=== PATIENT | male | born 1930 | race Caucasian/White ===

== ENCOUNTER 2016-10-29 10:03 | Inpatient (IN) | payer MEDICARE, OTHER ==
[2016-10-29 11:45] LABS: Hematocrit 33 % (42-52); Hemoglobin 10.4 g/dl (14.0-18.0); Mean Corpuscular HGB Conc 32 g/dl (31-36); Mean Corpuscular Hemoglobin 28 pg (27-31); Mean Corpuscular Volume 87 fL (80-94); Mean Platelet Volume 9 um3 (7.4-10.4); Red Blood Count 3.77 10^6/ul (4.0-5.4); Red Cell Distribution Width 15 % (10.5-15); White Blood Count 10.9 10^3/ul (3.5-10.8)
[2016-10-29 11:56] LABS: BUN/Creatinine Ratio 22.3 (8-20); Calcium 8.5 mg/dL (8.6-10.3); EGFR African American 54.4 (>60); EGFR Non-African American 42.3 (>60); Potassium 4.1 mmol/L (3.5-5.0); Total Bilirubin 0.5 mg/dL (0.2-1.0)
--- NOTE | 2016-10-29 12:01 | RAD ---
INDICATION: Shortness of breath. COMPARISON: Similar chest x-ray October 01, 2016 TECHNIQUE: Single AP portable view of the chest was obtained. FINDINGS: Image quality is compromised due to the relative inferiority of a portable chest x-ray. Stable postoperative findings include sternotomy wires and mediastinal surgical clips. There is mild to moderate cardiomegaly and faint calcification overlying the arch of the aorta. The lungs appear hyperaerated and this single AP view. There is patchy density obscuring the left lung base and left hemidiaphragm as well as density blunting the right costophrenic angle. The pulmonary vasculature is indistinct and mildly engorged. IMPRESSION: Left greater than right lung base density similar in appearance to the previous chest x-ray with features suggesting cardiogenic pulmonary edema.
[2016-10-29 12:02] LABS: Troponin I 0.07 ng/mL (<0.04)
[2016-10-29] MEDS ORDERED: Aspirin TAB* 325 MG PO ONE (12:20)
[2016-10-29] MEDS ORDERED: Nitroglycerin 2% OINT* 1 GM PAK TOPICAL ONE (12:20)
[2016-10-29] MEDS ORDERED: Furosemide IV* 10 MG/ML VIAL (40 MG) IV SLOW PU ONE (12:20)
--- NOTE | 2016-10-29 13:26 | HP ---
H&P (Free Text) History and Physical: PCP: Chance Velázquez MD Date/Time of Evaluation: 10/29/2016 1330 CC: SOB HPI: Mr Ryder is an 86YO male admitted to [facility] [place]04[place], discharged to [facility] for acute rehab, and discharged home yesterday around 1400. He did well yesterday evening, eating only an egg with "a little" salt. This AM he awoke noticing increased exertional SOB. He denies chest pain, N/V/D, F/C, palpitations, light-headedness, LE swelling, or sweats. He does have a wet cough and his reports he has coughed up some thick dark yellow sputum this AM. Work up reveals stable vitals, saO2 99% on RA (but was placed on NC oxygen in ED ). Labs show a stable normocytic anemia, WBCs of 10.9, improved renal function from his typical baseline, troponin of 0.07, total protein 6.0, & albumin 3.0. ECG is sinus w/ frequent PACs rate 78, no ischemia. CXR is consistent with CHF. PMedHx CAD/4vCABG COPD 3L NC oxygen dependent hemorrhagic CVA HTN HLD ANNE-MARIE depression chronic LBP w/ sciatica suicide attempt (cut L wrist, now w/ chronic numbness of L hand) BPH Allergies Sulfa Drugs Allergy (Unknown, Verified 11/29/14 23:58) Unknown Reaction Details Ambulatory Orders Acetaminophen [Acetaminophen Extra Stren] 1,000 mg PO QAM PRN 09/28/16 Aspirin EC Low Dose* [Ecotrin EC Low Dose*] 81 mg PO QAM 09/28/16 Atorvastatin* [Lipitor 10 MG*] 20 mg PO QAM 09/28/16 Bisoprolol TAB* [Zebeta TAB*] 5 mg PO QPM 09/28/16 Budesonide NEB* [Pulmicort Neb*] 1 mg INH BID 09/28/16 Bupropion XL* [Wellbutrin XL *] 150 mg PO QAM 09/28/16 Cholecalciferol TAB* [Vitamin D TAB*] 1,000 unit PO QAM 09/28/[address] CAP* [Cymbalta CAP*] 90 mg PO QAM 09/28/16 Multivitamins/Minerals TAB* [Theragran/minerals TAB*] 1 tab PO QAM 09/28/16 QUEtiapine XR TAB* [Seroquel Xr TAB*] 300 mg PO BEDTIME 09/28/16 Tamsulosin CAP* [Flomax CAP*] 0.4 mg PO QPM 09/28/16 Torsemide TAB* [Demadex 20 MG*] 40 mg PO QAM 09/28/16 guaiFENesin ER TAB [Mucinex*] 600 mg PO BID 09/28/16 Albuterol/Ipratropium NEB.CHINMAY* [Duoneb NEB.CHINMAY*] 1 neb INH Q4H PRN #0 neb.soln 10/03/16 Mometasone/Formoter 100/5 MDI* [Dulera 100/5 MDI*] 2 puff INH BID mdi 10/03/16 Albuterol/Ipratropium NEB.CHINMAY* [Duoneb NEB.CHINMAY*] 1 neb INH Q12H 10/29/16 Arformoterol (NF) [Brovana(NF)] 15 mcg INH BID 10/29/16 Arformoterol (NF) [Brovana(NF)] 15 mcg INH BID 10/29/16 Benzonatate CAP* [Tessalon CAP*] 200 mg PO TID 10/29/16 Sennosides-Docusate Sodium [Senna-S 8.6-50 mg] 1 tab PO BEDTIME 10/29/16 Tiotropium CAP.INH* [Spiriva CAP.INH*] 1 cap.inh INH DAILY 10/29/16 SocHx: former smoker w/ ~50PYHX, HX alcoholism sober ~25years, no recreational drugs; lives with his ; Jew; full code status FamHx: reviewed, non-contributory ROS: as above, otherwise reviewed and all were negative Constitutional: NAD, normally developed, well-nourished elderly white male vitals: Vital Signs Temp 36.9 C 10/29/16 10:45 Pulse 84 10/29/16 11:30 Resp 26 10/29/16 11:30 BP 119/79 10/29/16 12:00 Pulse Ox 93 10/29/16 11:30 Intake & Output 10/28/16 10/29/16 10/29/16 23:59 11:59 23:59 Intake Total 4 Balance 4 Weight 147 lb Intake: IV Fluids 4 HEENM: atraumatic; sclera/conjunctiva: non-icteric/clear; hearing: mildly decreased; oropharynx: soft palate erythema and cutaneous atrophy with dusky exudates consistent with oral candidiasis Neck: soft tissue: non-tender; thyroid: normal Pulmonary: scattered rhonchi B, good to fair aeration, no accessory muscle use CV: IR/IR, normal S1S2, no carotid bruit, no jugular venous distention, 1+ B DP/ PT, no edema Abdominal: soft, non-distended, non-tender, no rebound/guarding/rigidity, normoactive bowel sounds, no hepatosplenomegaly or masses, no costovertebral angle tenderness Musculoskeletal: general: grossly intact; gait: stable Integumental: normal appearance & texture for age Psychiatric orientation: AA&O to PPS affect: calm mood: pleasant eye contact: good content: unreliable responses: timely insight: fair Testing: Lab Results 10/29/16 10/29/16 10/29/16 Range/Units 10:10 10:10 10:10 WBC 10.9 H (3.5-10.8) 10^3/ul RBC 3.77 L (4.0-5.4) 10^6/ul Hgb 10.4 L (14.0-18.0) g/dl Hct 33 L (42-52) % MCV 87 (80-94) fL MCH 28 (27-31) pg MCHC 32 (31-36) g/dl RDW 15 (10.5-15) % Plt Count 228 (150-450) 10^3/ul MPV 9 (7.4-10.4) um3 Neut % (Auto) 79.3 (38-83) % Lymph % (Auto) 13.4 L (25-47) % [place] % (Auto) 6.9 (1-9) % Eos % (Auto) 0.2 (0-6) % Baso % (Auto) 0.2 (0-2) % Absolute Neuts (auto) 8.7 H (1.5-7.7) 10^3/ul Absolute Lymphs (auto) 1.5 (1.0-4.8) 10^3/ul Absolute Monos (auto) 0.8 (0-0.8) 10^3/ul Absolute Eos (auto) 0 (0-0.6) 10^3/ul Absolute Basos (auto) 0 (0-0.2) 10^3/ul Absolute Nucleated RBC 0 10^3/ul Nucleated RBC % 0 Sodium 141 (133-145) mmol/L Potassium 4.1 (3.5-5.0) mmol/L Chloride 101 (101-111) mmol/L Carbon Dioxide 31 (22-32) mmol/L Anion Gap 9 (2-11) mmol/L BUN 35 H (6-24) mg/dL Creatinine 1.57 H (0.67-1.17) mg/dL Est GFR ( Amer) 54.4 (>60) Est GFR (Non-Af Amer) 42.3 (>60) BUN/Creatinine Ratio 22.3 H (8-20) Glucose 101 H (70-100) mg/dL Lactic Acid (0.5-2.0) mmol/L Calcium 8.5 L (8.6-10.3) mg/dL Total Bilirubin 0.50 (0.2-1.0) mg/dL AST 13 (13-39) U/L ALT 12 (7-52) U/L Alkaline Phosphatase 50 (34-104) U/L Troponin I 0.07 H* (<0.04) ng/mL B-Natriuretic Peptide 282 H ( - 100) pg/mL Total Protein 6.0 L (6.4-8.9) g/dL Albumin 3.0 L (3.2-5.2) g/dL Globulin 3.0 (2-4) g/dL Albumin/Globulin Ratio 1.0 (1-3) 10/29/16 Range/Units 12:22 WBC (3.5-10.8) 10^3/ul RBC (4.0-5.4) 10^6/ul Hgb (14.0-18.0) g/dl Hct (42-52) % MCV (80-94) fL MCH (27-31) pg MCHC (31-36) g/dl RDW (10.5-15) % Plt Count (150-450) 10^3/ul MPV (7.4-10.4) um3 Neut % (Auto) (38-83) % Lymph % (Auto) (25-47) % [place] % (Auto) (1-9) % Eos % (Auto) (0-6) % Baso % (Auto) (0-2) % Absolute Neuts (auto) (1.5-7.7) 10^3/ul Absolute Lymphs (auto) (1.0-4.8) 10^3/ul Absolute Monos (auto) (0-0.8) 10^3/ul Absolute Eos (auto) (0-0.6) 10^3/ul Absolute Basos (auto) (0-0.2) 10^3/ul Absolute Nucleated RBC 10^3/ul Nucleated RBC % Sodium (133-145) mmol/L Potassium (3.5-5.0) mmol/L Chloride (101-111) mmol/L Carbon Dioxide (22-32) mmol/L Anion Gap (2-11) mmol/L BUN (6-24) mg/dL Creatinine (0.67-1.17) mg/dL Est GFR ( Amer) (>60) Est GFR (Non-Af Amer) (>60) BUN/Creatinine Ratio (8-20) Glucose (70-100) mg/dL Lactic Acid 1.3 (0.5-2.0) mmol/L Calcium (8.6-10.3) mg/dL Total Bilirubin (0.2-1.0) mg/dL AST (13-39) U/L ALT (7-52) U/L Alkaline Phosphatase (34-104) U/L Troponin I (<0.04) ng/mL B-Natriuretic Peptide ( - 100) pg/mL Total Protein (6.4-8.9) g/dL Albumin (3.2-5.2) g/dL Globulin (2-4) g/dL Albumin/Globulin Ratio (1-3) ECG, personally reviewed: sinus w/ frequent PACs rate 78, no ischemia CXR, personally reviewed: IMPRESSION: Left greater than right lung base density similar in appearance to the previous chest x-ray with features suggesting cardiogenic pulmonary edema. ECHO 09/28/2016: Conclusions: The study is technically limited due to the patient's history of COPD. Septal wall hypertrophy is observed.c/w a sigmoid septum. No significant obstruction. The estimated ejection fraction is 40-45%. Post surgical hypokinesis of the interventricular septum is observed consistent with coronary artery bypass. The left atrium is slightly dilated. The septum has abnormal paradoxical motion consistent with post-operative pressure. The aortic valve leaflets are mildly thickened. There is mild aortic regurgitation. There is trace to mild tricuspid regurgitation. There is mild dilatation of the ascending aorta. There is moderate dilatation of the aortic root. Compared to 2008, the EF appears decreased from 50% then to 40-45% now. Impression: 86M presenting <24h after discharge from acute rehab at [facility] with acute on chronic systolic HF likely 2nd sodium indiscretion & possibly a component of COPD exacerbation DIAGNOSIS & PLAN Primary acute systolic HF : nutrition consult to review low sodium diet : furosemide diuresis : continue PO torsemide : strict I&Os : daily weights : supplemental oxygen : supportive care COPD exacerbation : albuterol nebs : mometasone/formoterol : tiotropium : methylprednisolone IV : incentive spirometry : guiafenesin : PO azithromycin : supplemental oxygen elevated troponin : suspect demand ischemia : telemetry : trend : aspirin 324mg given in ED, continue low dose oral candidiasis : 2nd inhaled steroids : nystatin swish & swallow Secondary CAD/4vCABG : continue low dose aspirin HTN : continue bisoprolol HLD : continue atorvastatin ANNE-MARIE depression : continue bupropion XL & quetiapine chronic LBP w/ sciatica : continue duloxetine BPH : continue tamsulosin Admission Rational: observation for diuresis and monitoring DVTp: SCDs & heparin SQ Code Status: full HCP:
[2016-10-29] MEDS ORDERED: Acetaminophen TAB* 325 MG PO PRN (15:04)
[2016-10-29] MEDS ORDERED: Melatonin (NF) 3 MG TAB PO PRN (15:04)
[2016-10-29] MEDS ORDERED: Ondansetron INJ* 2 MG/ML VIAL IV PRN (15:04)
[2016-10-29] MEDS ORDERED: traMADol TAB* 50 MG PO PRN (15:04)
[2016-10-29] MEDS ORDERED: Albuterol 2.5 MG/3 ML NEB.SOL* (0.083%) INH PRN (15:04)
[2016-10-29] MEDS: Nystatin SUSPENSION* 100000 UNITS/ML 5 ML UDC SWISH SWAL SCH ×2 (15:59→20:48)
[2016-10-29] MEDS ORDERED: Furosemide IV* 10 MG/ML 10 ML VIAL (100 MG) IV ONE (16:00)
[2016-10-29] MEDS ORDERED: Azithromycin TAB* 250 MG PO SCH (16:00)
[2016-10-29] MEDS: Albuterol 2.5 MG/3 ML NEB.SOL* (0.083%) INH SCH (19:59)
[2016-10-29] MEDS: Mometasone/Formoter 200/5 MDI INH SCH (20:15)
[2016-10-29] MEDS: Bisoprolol TAB* 5 MG PO SCH (20:39)
[2016-10-29] MEDS: Tamsulosin CAP* 0.4 MG PO SCH (20:40)
[2016-10-29] MEDS: Docusate CAP* 100 MG PO SCH (20:41)
[2016-10-29] MEDS: Benzonatate CAP* 100 MG PO SCH (20:41)
[2016-10-29] MEDS: guaiFENesin ER TAB 600 MG PO SCH (20:42)
[2016-10-29] MEDS: DOXYcycline CAP(*) 100 MG PO SCH (20:42)
[2016-10-29] MEDS: QUEtiapine XR TAB* 300 MG PO SCH (20:43)
[2016-10-29] MEDS: Senna TAB PO SCH (20:43)
[2016-10-29] MEDS ORDERED: Mometasone/Formoter 100/5 MDI INH SCH (21:00)
[2016-10-30] MEDS: Albuterol 2.5 MG/3 ML NEB.SOL* (0.083%) INH SCH ×4 (01:00→20:08)
[2016-10-30] MEDS: Heparin VIAL(*) 5000 UNITS/ML VIAL (FIVE THOUSAND) SUBCUT SCH ×3 (05:49→21:33)
[2016-10-30] MEDS ORDERED: Omeprazole CAP* 20 MG PO SCH (06:00)
[2016-10-30 06:42] LABS: Hematocrit 32 % (42-52); Hemoglobin 10.5 g/dl (14.0-18.0); Mean Corpuscular HGB Conc 33 g/dl (31-36); Mean Corpuscular Hemoglobin 28 pg (27-31); Mean Corpuscular Volume 86 fL (80-94); Mean Platelet Volume 8 um3 (7.4-10.4); Red Blood Count 3.75 10^6/ul (4.0-5.4); Red Cell Distribution Width 16 % (10.5-15); White Blood Count 9.7 10^3/ul (3.5-10.8)
[2016-10-30 06:58] LABS: BUN/Creatinine Ratio 22.8 (8-20); Calcium 8.2 mg/dL (8.6-10.3); EGFR African American 69.5 (>60); Potassium 3.6 mmol/L (3.5-5.0)
--- NOTE | 2016-10-30 08:02 | ED ---
Isela Field SooYoung, scribed for Larry Webb MD on 10/29/16 at 1120 . Shortness of Breath - HPI Summary HPI Summary: A 86 y/o M LORAINE presents to ED with c/o SOB onset this AM. Pt is on 2L home O2, his said she turned it up to 3L but that didn't help him. Associated sx: Productive cough. Negative: CP, fever, chills, diaphoresis, n/v/d. Pert PMHx: COPD. Pt was discharged from [facility] last night recovering from SOB. - History of Current Complaint Chief Complaint: EDShortnessOfBreath Time Seen by Provider: 10/29/16 11:09 Hx Obtained From: Patient, Family/Neurodiagnostic Tech - Onset/Duration: Still Present Current Severity: Moderate Associated Signs & Symptoms: Cough (Productive) - Allergy/Home Medications Allergies/Adverse Reactions: Allergies Allergy/AdvReac Type Severity Reaction Status Date / Time Sulfa Drugs Allergy Unknown Unknown Verified 11/29/14 23:58 Reaction Details Home Medications: Home Medications Arformoterol (NF) [Brovana(NF)] 15 mcg INH BID 10/29/16 [History Confirmed 10/29] Benzonatate CAP* [Tessalon CAP*] 200 mg PO TID 10/29/16 [History Confirmed 10/29] Sennosides-Docusate Sodium [Senna-S 8.6-50 mg] 1 tab PO BEDTIME 10/29/16 [ History Confirmed 10/29/16] PMH/Surg Hx/FS Hx/Imm Hx Previously Healthy: No Cardiovascular History: Reports: Hx Hypertension, Other Cardiovascular Problems/ Disorders - 4 bypasses Respiratory History: Reports: Hx Chronic Bronchitis, Hx Chronic Obstructive Pulmonary Disease (COPD) - has portable oxygen set at 3 liters/nasal cannula, Hx Pneumonia, Hx Sleep Apnea Musculoskeletal History: Reports: Hx Arthritis, Hx Back Problems, Hx Gout Sensory History: Reports: Hx Contacts or Glasses, Hx Hearing Aid Opthamlomology History: Reports: Hx Contacts or Glasses Neurological History: Reports: Other Neuro Impairments/Disorders - patient and note minor stroke Psychiatric History: Reports: Hx Anxiety, Hx Depression, Hx Suicide Attempt - Surgical History Surgery Procedure, Year, and Place: Had cyst removed from back; 4 cardiac bypasses; Deviated septum repair; Cataract Surgery Infectious Disease History: No Infectious Disease History: Denies: Traveled Outside the [place] in Last 30 Days - Family History Known Family History: Negative: Diabetes Family History: reviewed and noncontributory - Social History Occupation: Retired Lives: With Family Alcohol Use: None Substance Use Type: Reports: None Smoking Status (MU): Former Smoker Review of Systems Negative: Fever, Chills Negative: Erythema Negative: Sore Throat Negative: Chest Pain Positive: Shortness Of Breath, Cough Negative: Abdominal Pain, Vomiting, Nausea Negative: dysuria, hematuria Negative: Myalgia, Edema Negative: Rash Neurological: Other - neg: dizziness All Other Systems Reviewed And Are Negative: Yes Physical Exam - Summary Physical Exam Summary: Constitutional: Well-developed, Well-nourished, Alert. Negative Distressed Skin: Warm, Dry HENT: Normocephalic; Atraumatic Eyes: Conjunctiva normal Neck: Musculoskeletal ROM normal neck. Negative JVD, Negative Stridor, Negative Tracheal deviation Cardio: Rhythm regular, rate normal, Heart sounds normal; Intact distal pulses; The pedal pulses are 2+ and symmetric. Radial pulses are 2+ and symmetric. Negative Murmur Pulmonary/Chest wall: Effort normal. Negative Respiratory distress, BILATERAL RHONCHI Abd: Soft, Negative Tenderness, Negative Distension, Negative Guarding, Negative Rebound Musculoskeletal: Negative Edema Lymph: Negative Cervical adenopathy Neuro: Alert, Oriented x3 Psych: Mood and affect Normal Triage Information Reviewed: Yes Vital Signs On Initial Exam: Initial Vitals Temp Pulse Resp BP Pulse Ox 98.5 F 95 22 120/69 100 10/29/16 10:18 10/29/16 10:18 10/29/16 10:18 10/29/16 10:18 10/29/16 10:18 Vital Signs Reviewed: Yes - Jackson Coma Scale Coma Scale Total: 15 Diagnostics - Vital Signs Vital Signs Temp Pulse Resp BP Pulse Ox 10/29/16 10:45 98.5 F 69 20 117/58 95 10/29/16 10:18 98.5 F 95 22 120/69 100 - Laboratory Result Diagrams: 10/29/16 10:10 10/29/16 10:10 Lab Statement: Any lab studies that have been ordered have been reviewed, and results considered in the medical decision making process. - Radiology CXR Xray Interpretation: Positive (See Comments) - IMPRESSION: Left greater than right lung base density similar in appearance to the previous chest x-ray with features suggesting cardiogenic pulmonary edema. Radiology Interpretation Completed By: Radiologist - Additional Comments Diagnostic Additional Comments: Real-time telemetry in room: SR with 1st degree AV block Course/Dx - Diagnoses Provider Diagnoses: CHF exacerbation - Physician Notifications Discussed Care of Patient With: Dr. Andrade hospitalist Time Discussed With Above Provider: 12:37 Instructed by Provider To: Admit As Inpatient Discharge - Discharge Plan Condition: Stable Disposition: ADMITTED TO [facility] Referrals: Maxx Velázquez MD [Primary Care Provider] - The documentation as recorded by the Isela andino SooYoung accurately reflects the service I personally performed and the decisions made by me, Larry Webb MD.
[2016-10-30] MEDS: Tiotropium CAP.INH* CAP.INH/18 MCG (USE ORDER SET !) INH SCH (08:33)
[2016-10-30] MEDS: Mometasone/Formoter 200/5 MDI INH SCH ×2 (08:37→20:11)
[2016-10-30] MEDS ORDERED: Spiriva Inhaler DEVICE* 1 EACH DEVICE INH ONE (09:00)
[2016-10-30] MEDS ORDERED: methylPREDNISolone SOD 40 MG* 1 ML VIAL IV SCH (09:00)
[2016-10-30] MEDS ORDERED: DULoxetine DR CAP* 30 MG CAP.DR PO SCH (09:00)
[2016-10-30] MEDS: Aspirin EC Low Dose* 81 MG TAB.EC PO SCH (10:35)
[2016-10-30] MEDS: Nystatin SUSPENSION* 100000 UNITS/ML 5 ML UDC SWISH SWAL SCH ×3 (10:35→20:05)
[2016-10-30] MEDS: Docusate CAP* 100 MG PO SCH (10:35)
[2016-10-30] MEDS: Benzonatate CAP* 100 MG PO SCH ×3 (10:35→20:05)
[2016-10-30] MEDS: Atorvastatin* 20 MG TAB PO SCH (10:35)
[2016-10-30] MEDS: guaiFENesin ER TAB 600 MG PO SCH ×2 (10:36→20:05)
[2016-10-30] MEDS: BuPROPion XL* 150 MG TAB.XL PO SCH (10:36)
[2016-10-30] MEDS: Torsemide TAB* 20 MG PO SCH (10:36)
[2016-10-30] MEDS: DOXYcycline CAP(*) 100 MG PO SCH ×2 (10:36→20:05)
[2016-10-30] MEDS: Furosemide IV* 10 MG/ML 10 ML VIAL (100 MG) IV SCH (10:37)
--- NOTE | 2016-10-30 15:18 | PN ---
Subjective Date of Service: 10/30/16 Interval History: Somewhat less SOB today but very weak. Little cough. Objective Active Medications: Acetaminophen (Tylenol Tab*) 650 mg PO Q6H PRN PRN Reason: FEVER/PAIN Albuterol (Ventolin 2.5 Mg/3 Ml Neb.Tiffany*) 2.5 mg INH Q2H PRN PRN Reason: SOB/WHEEZING Albuterol (Ventolin 2.5 Mg/3 Ml Neb.Tiffany*) 2.5 mg INH RT.[id number] AWAKE [facility] Last Admin: 10/30/16 14:34 Dose: 2.5 mg Aspirin (Aspirin Ec Low Dose*) [facility] [place] Last Admin: 10/30/16 10:35 Dose: 81 mg Atorvastatin Calcium (Lipitor*) 20 mg PO [facility] Last Admin: 10/30/16 10:35 Dose: 20 mg Benzonatate (Tessalon Cap*) 200 mg PO TID [facility] Last Admin: 10/30/16 10:35 Dose: 200 mg Bisoprolol Fumarate (Zebeta Tab*) 5 mg PO QPM [facility] Last Admin: 10/29/16 20:39 Dose: 5 mg Bupropion HCl (Wellbutrin Xl *) 150 mg PO [facility] PRN Reason: Protocol Last Admin: 10/30/16 10:36 Dose: 150 mg Docusate Sodium (Colace Cap*) 200 mg PO BID [facility] Last Admin: 10/30/16 10:35 Dose: 200 mg Doxycycline Hyclate (Vibramycin Cap(*)) 100 mg PO BID [facility] Last Admin: 10/30/16 10:36 Dose: 100 mg Duloxetine HCl (Cymbalta Cap*) 90 mg PO [facility] Last Admin: 10/30/16 10:36 Dose: 90 mg Furosemide (Lasix Iv*) 40 mg IV [facility] Last Admin: 10/30/16 10:37 Dose: 40 mg Guaifenesin (Mucinex*) 1,200 mg PO BID [facility] Last Admin: 10/30/16 10:36 Dose: 1,200 mg Heparin Sodium (Porcine) (Heparin Vial(*)) 5,000 units SUBCUT Q8HR [facility] Last Admin: 10/30/16 05:49 Dose: 5,000 units Mometasone Furoate/Formoterol Fumar (Dulera 200/5 Mdi*) 2 puff INH BID [facility] Last Admin: 10/30/16 08:37 Dose: 2 puff Nystatin (Nystatin Suspension*) 200,000 units SWISH SWAL TID [facility] Last Admin: 10/30/16 10:35 Dose: 200,000 units Ondansetron HCl (Zofran Inj*) 4 mg IV Q6H PRN PRN Reason: NAUSEA Quetiapine Fumarate (Seroquel Xr Tab*) 300 mg PO BEDTIME [facility] Last Admin: 10/29/16 20:43 Dose: 300 mg Senna (Senokot Tab*) 1 tab PO BEDTIME [facility] Last Admin: 10/29/16 20:43 Dose: 1 tab Tamsulosin HCl (Flomax Cap*) 0.4 mg PO QPM [facility] Last Admin: 10/29/16 20:40 Dose: 0.4 mg Tiotropium [place] (Spiriva Cap.Inh*) 1 cap INH DAILY [facility] Last Admin: 10/30/16 08:33 Dose: 1 cap Torsemide (Demadex*) 40 mg PO QAM [facility] Last Admin: 10/30/16 10:36 Dose: 40 mg Tramadol HCl (Ultram*) 50 mg PO Q6H PRN PRN Reason: PAIN Vital Signs 10/29/16 10/29/16 10/29/16 18:03 19:28 20:00 Temperature 97.9 F Pulse Rate 84 89 Respiratory 17 24 18 Rate Blood Pressure 102/54 134/84 (mmHg) O2 Sat by Pulse 96 Oximetry 10/29/16 10/29/16 10/30/16 20:01 21:02 00:24 Temperature 98.7 F Pulse Rate 78 65 Respiratory 18 18 16 Rate Blood Pressure 110/59 (mmHg) O2 Sat by Pulse 95 95 Oximetry 10/30/16 10/30/16 10/30/16 04:44 07:52 08:00 Temperature 98.4 F 98.2 F Pulse Rate 32 75 Respiratory 16 20 18 Rate Blood Pressure 122/60 130/67 (mmHg) O2 Sat by Pulse 97 96 Oximetry 10/30/16 10/30/16 10/30/16 08:25 11:21 14:35 Temperature 98.2 F Pulse Rate 86 77 88 Respiratory 18 24 16 Rate Blood Pressure 118/62 (mmHg) O2 Sat by Pulse 98 97 99 Oximetry Oxygen Devices in Use Now: Nasal Cannula Appearance: Alert, partly up in bed. In fair spirits. Looks comfortable. No cough during my visit. Eyes: No Scleral Icterus Ears/Nose/Mouth/Throat: Clear Oropharnyx, Mucous Membranes Moist Neck: NL Appearance and Movements; NL JVP, No Thyroid Enlargement, Masses Respiratory: Symmetrical Chest Expansion and Respiratory Effort, Clear to Auscultation, Clear to Percussion Cardiovascular: NL Sounds; No Murmurs; No JVD, No Edema, - - irreg Skin: No Nodules or Sclerosis, - - many seborrheic keratoses on trunk and extremities. Neurological: Alert and Oriented x 3, NL Sensation Result Diagrams: 10/30/16 06:16 10/30/16 06:16 Assess/Plan/Problems-Billing Assessment: - Patient Problems (1) COPD (chronic obstructive pulmonary disease) Current Visit: No Status: Acute Code(s): J44.9 - CHRONIC OBSTRUCTIVE PULMONARY DISEASE, UNSPECIFIED SNOMED Code(s): 84805507 Comment: Taper prednisone. Continue tiotropium, albuterol neb. (2) Congestive heart failure Current Visit: Yes Status: Acute Code(s): I50.9 - HEART FAILURE, UNSPECIFIED SNOMED Code(s): 20808891 Comment: Acute on chronic systolic CHF. Change back to oral torsemide . I suspect there was some dietary excess of sodium at home. Daily weights requested. (3) HTN (hypertension) Current Visit: No Status: Acute Code(s): I10 - ESSENTIAL (PRIMARY) HYPERTENSION SNOMED Code(s): 76149956 Comment: Continue bisoprolol.
[2016-10-30] MEDS: Tamsulosin CAP* 0.4 MG PO SCH (18:33)
[2016-10-30] MEDS: Bisoprolol TAB* 5 MG PO SCH (18:33)
[2016-10-30] MEDS: Senna TAB PO SCH (20:06)
[2016-10-30] MEDS: QUEtiapine XR TAB* 300 MG PO SCH (21:33)
[2016-10-30] MEDS: Melatonin (NF) 3 MG TAB PO PRN (21:33)
[2016-10-31] MEDS: Albuterol 2.5 MG/3 ML NEB.SOL* (0.083%) INH SCH ×4 (01:40→21:29)
[2016-10-31] MEDS: Heparin VIAL(*) 5000 UNITS/ML VIAL (FIVE THOUSAND) SUBCUT SCH ×3 (05:14→21:58)
[2016-10-31] MEDS: Tiotropium CAP.INH* CAP.INH/18 MCG (USE ORDER SET !) INH SCH (08:19)
[2016-10-31] MEDS: Mometasone/Formoter 200/5 MDI INH SCH ×2 (08:19→21:29)
[2016-10-31] MEDS ORDERED: predniSONE TAB* 20 MG PO SCH (09:00)
[2016-10-31] MEDS: Furosemide IV* 10 MG/ML 10 ML VIAL (100 MG) IV SCH (11:01)
[2016-10-31] MEDS: Nystatin SUSPENSION* 100000 UNITS/ML 5 ML UDC SWISH SWAL SCH ×3 (11:01→21:05)
[2016-10-31] MEDS: DULoxetine DR CAP* 30 MG CAP.DR PO SCH (11:02)
[2016-10-31] MEDS: Torsemide TAB* 20 MG PO SCH (11:02)
[2016-10-31] MEDS: guaiFENesin ER TAB 600 MG PO SCH ×2 (11:02→21:03)
[2016-10-31] MEDS: Atorvastatin* 20 MG TAB PO SCH (11:03)
[2016-10-31] MEDS: DOXYcycline CAP(*) 100 MG PO SCH ×2 (11:03→21:02)
[2016-10-31] MEDS: BuPROPion XL* 150 MG TAB.XL PO SCH (11:03)
[2016-10-31] MEDS: Benzonatate CAP* 100 MG PO SCH ×3 (11:03→21:02)
[2016-10-31] MEDS: Aspirin EC Low Dose* 81 MG TAB.EC PO SCH (11:03)
--- NOTE | 2016-10-31 15:37 | PN ---
Subjective Date of Service: 10/31/16 Interval History: No new c/o. Still some cough. Slowly getting better but still weak. Objective Active Medications: Acetaminophen (Tylenol Tab*) 650 mg PO Q6H PRN PRN Reason: FEVER/PAIN Last Admin: 10/30/16 18:52 Dose: 650 mg Albuterol (Ventolin 2.5 Mg/3 Ml Neb.Tiffany*) 2.5 mg INH Q2H PRN PRN Reason: SOB/WHEEZING Albuterol (Ventolin 2.5 Mg/3 Ml Neb.Tiffany*) 2.5 mg INH [id number] AWAKE [facility] Last Admin: 10/31/16 13:22 Dose: 2.5 mg Aspirin (Aspirin Ec Low Dose*) [facility] [place] Last Admin: 10/31/16 11:03 Dose: 81 mg Atorvastatin Calcium (Lipitor*) [facility] [place] Last Admin: 10/31/16 11:03 Dose: 20 mg Benzonatate (Tessalon Cap*) 100 mg PO TID [facility] Last Admin: 10/31/16 14:27 Dose: 100 mg Bisoprolol Fumarate (Zebeta Tab*) 5 mg PO QPM [facility] Last Admin: 10/30/16 18:33 Dose: 5 mg Bupropion HCl (Wellbutrin Xl *) [facility] [place] [facility]N Reason: Protocol Last Admin: 10/31/16 11:03 Dose: 150 mg Doxycycline Hyclate (Vibramycin Cap(*)) 100 mg PO BID [facility] Last Admin: 10/31/16 11:03 Dose: 100 mg Duloxetine HCl (Cymbalta Cap*) 60 mg PO [facility] Last Admin: 10/31/16 11:02 Dose: 60 mg Furosemide (Lasix Iv*) 40 mg IV [facility] Last Admin: 10/31/16 11:01 Dose: 40 mg Guaifenesin (Mucinex*) 1,200 mg PO BID [facility] Last Admin: 10/31/16 11:02 Dose: 1,200 mg Heparin Sodium (Porcine) (Heparin Vial(*)) 5,000 units SUBCUT Q8HR [facility] Last Admin: 10/31/16 14:28 Dose: 5,000 units Melatonin (Melatonin (Nf)) 3 mg PO BEDTIME PRN PRN Reason: SLEEP Last Admin: 01/01/17 21:33 Dose: 3 mg Mometasone Furoate/Formoterol Fumar (Dulera 200/5 Mdi*) 2 puff INH BID [facility] Last Admin: 10/31/16 08:19 Dose: 2 puff Nystatin (Nystatin Suspension*) 200,000 units SWISH SWAL TID [facility] Last Admin: 10/31/16 14:30 Dose: 200,000 units Ondansetron HCl (Zofran Inj*) 4 mg IV Q6H PRN PRN Reason: NAUSEA Prednisone (Deltasone Tab*) 60 mg PO ONCE [facility] Prednisone (Deltasone Tab*) 50 mg PO DAILY [facility] Quetiapine Fumarate (Seroquel Xr Tab*) 300 mg PO BEDTIME [facility] Last Admin: 10/30/16 21:33 Dose: 300 mg Senna (Senokot Tab*) 1 tab PO BEDTIME [facility] Last Admin: 10/30/16 20:06 Dose: 1 tab Tamsulosin HCl (Flomax Cap*) 0.4 mg PO QPM [facility] Last Admin: 10/30/16 18:33 Dose: 0.4 mg Tiotropium [place] (Spiriva Cap.Inh*) 1 cap INH DAILY [facility] Last Admin: 10/31/16 08:19 Dose: 1 cap Torsemide (Demadex*) 40 mg PO QAM [facility] Last Admin: 10/31/16 11:02 Dose: 40 mg Tramadol HCl (Ultram*) 50 mg PO Q6H PRN PRN Reason: PAIN Vital Signs 10/30/16 10/30/16 10/30/16 15:37 17:37 20:00 Temperature 97.9 F Pulse Rate 93 Respiratory 18 18 Rate Blood Pressure 119/63 (mmHg) O2 Sat by Pulse 93 96 Oximetry 10/30/16 10/31/16 10/31/16 20:11 00:59 01:47 Temperature 97.6 F Pulse Rate 74 45 Respiratory 20 16 Rate Blood Pressure 105/56 (mmHg) O2 Sat by Pulse 94 98 94 Oximetry 10/31/16 10/31/16 10/31/16 05:10 07:48 08:21 Temperature 97.8 F 98.0 F Pulse Rate 69 46 84 Respiratory 16 22 16 Rate Blood Pressure 107/51 116/58 (mmHg) O2 Sat by Pulse 95 95 96 Oximetry 10/31/16 10/31/16 10:59 13:24 Temperature Pulse Rate 72 70 Respiratory 20 16 Rate Blood Pressure (mmHg) O2 Sat by Pulse 100 Oximetry Oxygen Devices in Use Now: Nasal Cannula Appearance: Alert, supine in bed. In good spirits. Looks comfortable. Eyes: No Scleral Icterus Neck: NL Appearance and Movements; NL JVP, No Thyroid Enlargement, Masses Respiratory: Symmetrical Chest Expansion and Respiratory Effort, Clear to Percussion - mild scattered rhonchi Cardiovascular: NL Sounds; No Murmurs; No JVD, RRR, No Edema, - Extremities: No Edema, No Clubbing, Cyanosis, - Skin: No Rash or Ulcers, No Nodules or Sclerosis, - Neurological: Alert and Oriented x 3, NL Sensation, - - passive. No tremor. Result Diagrams: 10/30/16 06:16 10/30/16 06:16 Assess/Plan/Problems-Billing Assessment: - Patient Problems (1) COPD (chronic obstructive pulmonary disease) Current Visit: No Status: Acute Code(s): J44.9 - CHRONIC OBSTRUCTIVE PULMONARY DISEASE, UNSPECIFIED SNOMED Code(s): 17970832 Comment: Continue to taper prednisone. Continue tiotropium, albuterol neb. (2) Congestive heart failure Current Visit: Yes Status: Acute Code(s): I50.9 - HEART FAILURE, UNSPECIFIED SNOMED Code(s): 00719113 Comment: Acute on chronic systolic CHF. Oral torsemide re-started 10/31/16. I suspect there was some dietary excess of sodium at home. Daily weights requested. BMP 11/01/16. (3) HTN (hypertension) Current Visit: No Status: Acute Code(s): I10 - ESSENTIAL (PRIMARY) HYPERTENSION SNOMED Code(s): 04257601 Comment: Continue bisoprolol.
[2016-10-31] MEDS: Tamsulosin CAP* 0.4 MG PO SCH (17:50)
[2016-10-31] MEDS: Bisoprolol TAB* 5 MG PO SCH (17:50)
[2016-10-31] MEDS: QUEtiapine XR TAB* 300 MG PO SCH (21:04)
[2016-10-31] MEDS: Senna TAB PO SCH (21:04)
[2016-11-01] MEDS: Albuterol 2.5 MG/3 ML NEB.SOL* (0.083%) INH SCH ×4 (01:00→20:23)
[2016-11-01 05:01] LABS: BUN/Creatinine Ratio 22.9 (8-20); Calcium 7.8 mg/dL (8.6-10.3); EGFR African American 54.4 (>60); EGFR Non-African American 42.3 (>60); Potassium 3.7 mmol/L (3.5-5.0)
[2016-11-01] MEDS: Heparin VIAL(*) 5000 UNITS/ML VIAL (FIVE THOUSAND) SUBCUT SCH ×3 (05:22→20:48)
[2016-11-01] MEDS: Tiotropium CAP.INH* CAP.INH/18 MCG (USE ORDER SET !) INH SCH (07:57)
[2016-11-01] MEDS: Mometasone/Formoter 200/5 MDI INH SCH ×2 (07:58→20:24)
[2016-11-01] MEDS: DULoxetine DR CAP* 30 MG CAP.DR PO SCH (08:51)
[2016-11-01] MEDS: DOXYcycline CAP(*) 100 MG PO SCH ×2 (08:51→20:49)
[2016-11-01] MEDS: Atorvastatin* 20 MG TAB PO SCH (08:52)
[2016-11-01] MEDS: Torsemide TAB* 20 MG PO SCH (08:52)
[2016-11-01] MEDS: Aspirin EC Low Dose* 81 MG TAB.EC PO SCH (08:52)
[2016-11-01] MEDS: Benzonatate CAP* 100 MG PO SCH ×3 (08:52→20:49)
[2016-11-01] MEDS: guaiFENesin ER TAB 600 MG PO SCH ×2 (08:53→20:49)
[2016-11-01] MEDS: BuPROPion XL* 150 MG TAB.XL PO SCH (08:53)
[2016-11-01] MEDS: predniSONE TAB* 50 MG PO SCH (08:53)
[2016-11-01] MEDS: Nystatin SUSPENSION* 100000 UNITS/ML 5 ML UDC SWISH SWAL SCH ×2 (08:56→14:17)
--- NOTE | 2016-11-01 14:16 | PN ---
Subjective Date of Service: 11/01/16 Interval History: Pt c/o he doesn't like the mycostatin swish and spit. No other c/o. Objective Active Medications: Acetaminophen (Tylenol Tab*) 650 mg PO Q6H PRN PRN Reason: FEVER/PAIN Last Admin: 10/30/16 18:52 Dose: 650 mg Albuterol (Ventolin 2.5 Mg/3 Ml Neb.Tiffany*) 2.5 mg INH Q2H PRN PRN Reason: SOB/WHEEZING Albuterol (Ventolin 2.5 Mg/3 Ml Neb.Tiffany*) 2.5 mg INH [id number] AWAKE [facility] Last Admin: 11/01/16 12:52 Dose: 2.5 mg Aspirin (Aspirin Ec Low Dose*) 81 mg PO QAM [facility] Last Admin: 11/01/16 08:52 Dose: 81 mg Atorvastatin Calcium (Lipitor*) 20 mg PO QAM [facility] Last Admin: 11/01/16 08:52 Dose: 20 mg Benzonatate (Tessalon Cap*) 100 mg PO TID [facility] Last Admin: 11/01/16 08:52 Dose: 100 mg Bisoprolol Fumarate (Zebeta Tab*) 5 mg PO QPM [facility] Last Admin: 10/31/16 17:50 Dose: 5 mg Bupropion HCl (Wellbutrin Xl *) 150 mg PO QAM [facility] PRN Reason: Protocol Last Admin: 11/01/16 08:53 Dose: 150 mg Doxycycline Hyclate (Vibramycin Cap(*)) 100 mg PO BID [facility] Last Admin: 11/01/16 08:51 Dose: 100 mg Duloxetine HCl (Cymbalta Cap*) 60 mg PO QAM [facility] Last Admin: 11/01/16 08:51 Dose: 60 mg Guaifenesin (Mucinex*) 1,200 mg PO BID [facility] Last Admin: 11/01/16 08:53 Dose: 1,200 mg Heparin Sodium (Porcine) (Heparin Vial(*)) 5,000 units SUBCUT Q8HR [facility] Last Admin: 11/01/16 05:22 Dose: 5,000 units Melatonin (Melatonin (Nf)) 3 mg PO BEDTIME PRN PRN Reason: SLEEP Last Admin: 10/30/16 21:33 Dose: 3 mg Mometasone Furoate/Formoterol Fumar (Dulera 200/5 Mdi*) 2 puff INH BID [facility] Last Admin: 11/01/16 07:58 Dose: 2 puff Nystatin (Nystatin Suspension*) 200,000 units SWISH SWAL TID [facility] Last Admin: 11/01/16 08:56 Dose: 200,000 units Ondansetron HCl (Zofran Inj*) 4 mg IV Q6H PRN PRN Reason: NAUSEA Prednisone (Deltasone Tab*) 60 mg PO ONCE [facility] Prednisone (Deltasone Tab*) 50 mg PO DAILY [facility] Last Admin: 11/01/16 08:53 Dose: 50 mg Quetiapine Fumarate (Seroquel Xr Tab*) 300 mg PO BEDTIME [facility] Last Admin: 10/31/16 21:04 Dose: 300 mg Senna (Senokot Tab*) 1 tab PO BEDTIME [facility] Last Admin: 10/31/16 21:04 Dose: 1 tab Tamsulosin HCl (Flomax Cap*) 0.4 mg PO QPM [facility] Last Admin: 10/31/16 17:50 Dose: 0.4 mg Tiotropium [place] (Spiriva Cap.Inh*) 1 cap INH DAILY [facility] Last Admin: 11/01/16 07:57 Dose: 1 cap Torsemide (Demadex*) 40 mg PO QAM [facility] Last Admin: 11/01/16 08:52 Dose: 40 mg Tramadol HCl (Ultram*) 50 mg PO Q6H PRN PRN Reason: PAIN Vital Signs 10/31/16 10/31/16 10/31/16 16:18 19:44 20:00 Temperature 99.8 F 98.8 F Pulse Rate 73 53 Respiratory 18 20 20 Rate Blood Pressure 114/56 140/62 (mmHg) O2 Sat by Pulse 97 91 Oximetry 10/31/16 10/31/16 11/01/16 21:30 23:28 04:47 Temperature 97.9 F 98.0 F Pulse Rate 101 75 74 Respiratory 19 16 16 Rate Blood Pressure 138/70 101/55 (mmHg) O2 Sat by Pulse 98 93 96 Oximetry 11/01/16 11/01/16 11/01/16 07:53 08:00 12:55 Temperature 100.4 F Pulse Rate 78 72 56 Respiratory 18 18 16 Rate Blood Pressure 133/54 (mmHg) O2 Sat by Pulse 93 95 92 Oximetry Oxygen Devices in Use Now: Nasal Cannula Appearance: Alert, in a chair. In fair spirits. Looks comfortable. Eyes: No Scleral Icterus Ears/Nose/Mouth/Throat: Clear Oropharnyx, Mucous Membranes Moist, - - edentulous Respiratory: Symmetrical Chest Expansion and Respiratory Effort, Clear to Auscultation, Clear to Percussion Cardiovascular: NL Sounds; No Murmurs; No JVD, RRR, No Edema, - Neurological: NL Sensation, - - He knows the present month. Cooperative. No tremor. Result Diagrams: 10/30/16 06:16 11/01/16 04:27 Assess/Plan/Problems-Billing Assessment: - Patient Problems (1) COPD (chronic obstructive pulmonary disease) Current Visit: No Status: Acute Code(s): J44.9 - CHRONIC OBSTRUCTIVE PULMONARY DISEASE, UNSPECIFIED SNOMED Code(s): 73377330 Comment: Continue to taper prednisone. Continue tiotropium, albuterol neb. (2) Congestive heart failure Current Visit: Yes Status: Acute Code(s): I50.9 - HEART FAILURE, UNSPECIFIED SNOMED Code(s): 37467362 Comment: Acute on chronic systolic CHF. Oral torsemide re-started 10/31/16. I suspect there was some dietary excess of sodium at home. Daily weights requested. BMP 11/01/16. (3) HTN (hypertension) Current Visit: No Status: Acute Code(s): I10 - ESSENTIAL (PRIMARY) HYPERTENSION SNOMED Code(s): 20657512 Comment: Continue bisoprolol.
[2016-11-01] MEDS: Tamsulosin CAP* 0.4 MG PO SCH (17:02)
[2016-11-01] MEDS: Bisoprolol TAB* 5 MG PO SCH (17:02)
[2016-11-01] MEDS: QUEtiapine XR TAB* 300 MG PO SCH (20:49)
[2016-11-01] MEDS: Senna TAB PO SCH (20:49)
[2016-11-02] MEDS: Albuterol 2.5 MG/3 ML NEB.SOL* (0.083%) INH SCH ×4 (01:24→20:28)
[2016-11-02] MEDS: Heparin VIAL(*) 5000 UNITS/ML VIAL (FIVE THOUSAND) SUBCUT SCH ×3 (05:24→21:55)
[2016-11-02 06:21] LABS: BUN/Creatinine Ratio 28.7 (8-20); Calcium 8.1 mg/dL (8.6-10.3); EGFR African American 50.7 (>60); EGFR Non-African American 39.4 (>60); Potassium 3.9 mmol/L (3.5-5.0)
[2016-11-02] MEDS: Tiotropium CAP.INH* CAP.INH/18 MCG (USE ORDER SET !) INH SCH (08:45)
[2016-11-02] MEDS: Mometasone/Formoter 200/5 MDI INH SCH ×2 (08:46→22:39)
[2016-11-02] MEDS ORDERED: predniSONE TAB* 20 MG ONE (09:07)
[2016-11-02] MEDS: BuPROPion XL* 150 MG TAB.XL PO SCH (09:13)
[2016-11-02] MEDS: Aspirin EC Low Dose* 81 MG TAB.EC PO SCH (09:14)
[2016-11-02] MEDS: DULoxetine DR CAP* 30 MG CAP.DR PO SCH (09:14)
[2016-11-02] MEDS: DOXYcycline CAP(*) 100 MG PO SCH ×2 (09:14→21:55)
[2016-11-02] MEDS: guaiFENesin ER TAB 600 MG PO SCH ×2 (09:14→21:54)
[2016-11-02] MEDS: Torsemide TAB* 20 MG PO SCH (09:14)
[2016-11-02] MEDS: Atorvastatin* 20 MG TAB PO SCH (09:14)
[2016-11-02] MEDS: Benzonatate CAP* 100 MG PO SCH ×3 (09:15→21:54)
[2016-11-02] MEDS: predniSONE TAB* 20 MG PO SCH (09:15)
[2016-11-02] MEDS: predniSONE TAB* 50 MG PO SCH (09:24)
--- NOTE | 2016-11-02 15:26 | CONSULT ---
Palliative / Hospice Consult Ordering Provider: Moshe Casillas - Subjective Code Status: DNR Advance Directives Location: In Chart [facility] Part A Completed: Yes - DNR [facility] Part E Completed:: Yes - Comfort care AND intubation- incompatible HCP Completed: Yes - Shelby Ryder - History or Present Illness History or Present Illness: This 86 year old man was hospitalized a montha go with CHF/COPD exacerbation and sent to [facility] for rehab. He was sent home 10/28/16 and then returned [place] [facility] with worsening dyspnea the next day. He was diagnosed with fluid overload weighing 147 lbs. (baseline reported to be 139 lb) likely due to dietary sodium indiscretion, and COPD execarbation. EKG showed NSR with frequent PACs with HR 78, CXR c/w CHF, VSS, O2 saturation 99% on RA, BNP 282, and albumin 3.0. Creatinine was 1.57 with eGFR of 42.3. ECHO in August showed EF of 40-45%, no significant valve disease. The patient was seen at the bedside in the company of his . They had no HCP and no advance directives other than a recently filled out [facility] form specifying both comfort measures AND intubation and mechanical ventilation. The patient felt he was improved and expecting to return home, they are hoping to have some assistance at home at least initialy although they have now had some in house instruction in dietary precautions and sodium restriction. Lab Values: Abnormal Lab Results 11/02/16 05:48 Sodium 135 Potassium 3.9 Chloride 98 L Carbon Dioxide 30 Anion Gap 7 BUN 48 H Creatinine 1.67 H Est GFR ( Amer) 50.7 Est GFR (Non-Af Amer) 39.4 BUN/Creatinine Ratio 28.7 H Glucose 89 Calcium 8.1 L Laboratory Last Values WBC 9.7 10^3/ul (3.5-10.8) 10/30/16 06:16 RBC 3.75 10^6/ul (4.0-5.4) L 10/30/16 06:16 Hgb 10.5 g/dl (14.0-18.0) L 10/30/16 06:16 Hct 32 % (42-52) L 10/30/16 06:16 MCV 86 fL (80-94) 10/30/16 06:16 MCH 28 pg (27-31) 10/30/16 06:16 MCHC 33 g/dl (31-36) 10/30/16 06:16 RDW 16 % (10.5-15) H 10/30/16 06:16 Plt Count 216 10^3/ul (150-450) 10/30/16 06:16 MPV 8 um3 (7.4-10.4) 10/30/16 06:16 Neut % (Auto) 77.2 % (38-83) 10/30/16 06:16 Lymph % (Auto) 14.1 % (25-47) L 10/30/16 06:16 [place] % (Auto) 8.3 % (1-9) 10/30/16 06:16 Eos % (Auto) 0.3 % (0-6) 10/30/16 06:16 Baso % (Auto) 0.1 % (0-2) 10/30/16 06:16 Absolute Neuts (auto) 7.5 10^3/ul (1.5-7.7) 10/30/16 06:16 Absolute Lymphs (auto) 1.4 10^3/ul (1.0-4.8) 10/30/16 06:16 Absolute Monos (auto) 0.8 10^3/ul (0-0.8) 10/30/16 06:16 Absolute Eos (auto) 0 10^3/ul (0-0.6) 10/30/16 06:16 Absolute Basos (auto) 0 10^3/ul (0-0.2) 10/30/16 06:16 Absolute Nucleated RBC 0.01 10^3/ul 10/30/16 06:16 Nucleated RBC % 0.1 10/30/16 06:16 Sodium 135 mmol/L (133-145) 11/02/16 05:48 Potassium 3.9 mmol/L (3.5-5.0) 11/02/16 05:48 Chloride 98 mmol/L (101-111) L 11/02/16 05:48 Carbon Dioxide 30 mmol/L (22-32) 11/02/16 05:48 Anion Gap 7 mmol/L (2-11) 11/02/16 05:48 BUN 48 mg/dL (6-24) H 11/02/16 05:48 Creatinine 1.67 mg/dL (0.67-1.17) H 11/02/16 05:48 Est GFR ( Amer) 50.7 (>60) 11/02/16 05:48 Est GFR (Non-Af Amer) 39.4 (>60) 11/02/16 05:48 BUN/Creatinine Ratio 28.7 (8-20) H 11/02/16 05:48 Glucose 89 mg/dL (70-100) 11/02/16 05:48 Lactic Acid 1.3 mmol/L (0.5-2.0) 10/29/16 12:22 Calcium 8.1 mg/dL (8.6-10.3) L 11/02/16 05:48 Total Bilirubin 0.50 mg/dL (0.2-1.0) 10/29/16 10:10 AST 13 U/L (13-39) 10/29/16 10:10 ALT 12 U/L (7-52) 10/29/16 10:10 Alkaline Phosphatase 50 U/L (34-104) 10/29/16 10:10 Troponin I 0.06 ng/mL (<0.04) H* 10/29/16 22:10 B-Natriuretic Peptide 282 pg/mL (-100) H 10/29/16 10:10 Total Protein 6.0 g/dL (6.4-8.9) L 10/29/16 10:10 Albumin 3.0 g/dL (3.2-5.2) L 10/29/16 10:10 Globulin 3.0 g/dL (2-4) 10/29/16 10:10 Albumin/Globulin Ratio 1.0 (1-3) 10/29/16 10:10 Prealbumin 10 mg/dL (18-38) L 10/30/16 06:16 - Objective Active Medications: Acetaminophen (Tylenol Tab*) 650 mg PO Q6H PRN PRN Reason: FEVER/PAIN Last Admin: 10/30/16 18:52 Dose: 650 mg Albuterol (Ventolin 2.5 Mg/3 Ml Neb.Tiffany*) 2.5 mg INH Q2H PRN PRN Reason: SOB/WHEEZING Albuterol (Ventolin 2.5 Mg/3 Ml Neb.Tiffany*) 2.5 mg INH [id number] AWAKE [facility] Last Admin: 11/02/16 13:59 Dose: 2.5 mg Aspirin (Aspirin Ec Low Dose*) 81 mg PO QAM [facility] Last Admin: 11/02/16 09:14 Dose: 81 mg Atorvastatin Calcium (Lipitor*) 20 mg PO QAM [facility] Last Admin: 11/02/16 09:14 Dose: 20 mg Benzonatate (Tessalon Cap*) 100 mg PO TID [facility] Last Admin: 11/02/16 13:46 Dose: 100 mg Bisoprolol Fumarate (Zebeta Tab*) 5 mg PO QPM [facility] Last Admin: 11/01/16 17:02 Dose: 5 mg Bupropion HCl (Wellbutrin Xl *) [facility] [place] [facility] Reason: Protocol Last Admin: 11/02/16 09:13 Dose: 150 mg Doxycycline Hyclate (Vibramycin Cap(*)) 100 mg PO BID [facility] Last Admin: 11/02/16 09:14 Dose: 100 mg Duloxetine HCl (Cymbalta Cap*) [facility] [place] Last Admin: 11/02/16 09:14 Dose: 60 mg Guaifenesin (Mucinex*) 1,200 mg PO BID [facility] Last Admin: 11/02/16 09:14 Dose: 1,200 mg Heparin Sodium (Porcine) (Heparin Vial(*)) 5,000 units SUBCUT Q8HR [facility] Last Admin: 11/02/16 13:46 Dose: 5,000 units Melatonin (Melatonin (Nf)) 3 mg PO BEDTIME PRN PRN Reason: SLEEP Last Admin: 10/30/16 21:33 Dose: 3 mg Mometasone Furoate/Formoterol Fumar (Dulera 200/5 Mdi*) 2 puff INH BID [facility] Last Admin: 11/02/16 08:46 Dose: 2 puff Ondansetron HCl (Zofran Inj*) 4 mg IV Q6H PRN PRN Reason: NAUSEA Prednisone (Deltasone Tab*) 60 mg PO ONCE [facility] Prednisone (Deltasone Tab*) 40 mg PO DAILY [facility] Last Admin: 11/02/16 09:15 Dose: 40 mg Quetiapine Fumarate (Seroquel Xr Tab*) 300 mg PO BEDTIME [facility] Last Admin: 11/01/16 20:49 Dose: 300 mg Senna (Senokot Tab*) 1 tab PO BEDTIME [facility] Last Admin: 11/01/16 20:49 Dose: 1 tab Tamsulosin HCl (Flomax Cap*) 0.4 mg PO QPM [facility] Last Admin: 11/01/16 17:02 Dose: 0.4 mg Tiotropium [place] (Spiriva Cap.Inh*) 1 cap INH DAILY [facility] Last Admin: 11/02/16 08:45 Dose: 1 cap Torsemide (Demadex*) 20 mg PO QAM [facility] Last Admin: 11/02/16 09:14 Dose: 20 mg Tramadol HCl (Ultram*) 50 mg PO Q6H PRN PRN Reason: PAIN Vital Signs: Vital Signs: Temp Pulse Resp BP Pulse Ox 97.4 F 80 16 111/65 100 11/02/16 12:35 11/02/16 14:00 11/02/16 14:00 11/02/16 12:35 11/02/16 14:00 Patient Weight: Weight 139 lb 11.2 oz Intake and Output: Intake & Output 10/31/16 11/01/16 11/02/16 11/03/16 06:59 06:59 06:59 06:59 Intake Total 3940 787 9183 480 Output Total 580 825 225 0 Balance 630 45 855 480 Weight 141 lb 1.6 oz 139 lb 11.2 oz Intake: Oral 3046 301 4703 480 Output: Urine 580 825 225 0 Other: Estimated Void Small Medium Small Medium # Bowel Movements 0 0 0 # Voids 2 1 1 3 ADLs: Meal Record Start: 10/29/16 18: 26 Freq: DAILY@0900,1400,1800 Status: Active Created 10/29/16 18:26 System (Rec: 10/29/16 18:26 System [email or web address]-C05) Document 10/30/16 09:00 [id number] (Rec: 10/30/16 10:06 [id number] TELE-C01) Document 10/30/16 14:00 [id number] (Rec: 10/30/16 14:31 [id number] TELE-C01) Document 10/30/16 18:00 [id number] (Rec: 10/30/16 20:16 [id number] TELE-C13) Document 10/31/16 09:19 [id number] (Rec: 10/31/16 09:20 [id number] TELE-C01) Document 10/31/16 14:08 [id number] (Rec: 10/31/16 14:08 [id number] TELE-C01) Document 10/31/16 18:00 [id number] (Rec: 10/31/16 19:57 [id number] TELE-C09) Document 11/01/16 09:00 [id number] (Rec: 11/01/16 09:08 [id number] TELE-C01) Document 11/01/16 13:22 [id number] (Rec: 11/01/16 13:22 [id number] TELE-C01) Document 11/01/16 18:00 [id number] (Rec: 11/01/16 20:12 [id number] TELE-C01) Document 11/02/16 09:00 [id number] (Rec: 11/02/16 10:23 [id number] TELE-C07) Document 11/02/16 14:00 [id number] (Rec: 11/02/16 14:28 [id number] TELE-C01) Intake and Output Start: 10/29/16 18: 26 Freq: DAILY@0600,1400,2200 Status: Active Created 10/29/16 18:26 System (Rec: 10/29/16 18:26 System TELE-C05) Document 10/29/16 20:10 [id number] (Rec: 10/29/16 20:10 [id number] TELE-C07) Document 10/29/16 22:00 [id number] (Rec: 10/29/16 22:43 [id number] TELE-C01) Document 10/30/16 06:00 [id number] (Rec: 10/30/16 06:33 [id number] TELE-C32) Document 10/30/16 12:43 [id number] (Rec: 10/30/16 12:44 [id number] TELE-C01) Document 10/30/16 20:00 [id number] (Rec: 10/31/16 03:30 [id number] TELE-C09) Document 10/30/16 22:00 [id number] (Rec: 10/30/16 22:24 [id number] TELE-C34) Document 10/31/16 05:17 [id number] (Rec: 10/31/16 05:17 [id number] TELE-L01) Document 10/31/16 09:20 [id number] (Rec: 10/31/16 09:20 ABI3439 TELE-C01) Document 10/31/16 13:34 [id number] (Rec: 10/31/16 13:36 [id number] TELE-C01) Document 10/31/16 22:00 [id number] (Rec: 10/31/16 22:48 [id number] TELE-C32) Document 11/01/16 06:00 [id number] (Rec: 11/01/16 06:32 [id number] TELE-C34) Document 11/01/16 14:00 [id number] (Rec: 11/01/16 14:51 [id number] TELE-C01) Document 11/01/16 21:42 [id number] (Rec: 11/01/16 21:43 [id number] TELE-C01) Document 11/02/16 06:00 [id number] (Rec: 11/02/16 06:49 [id number] TELE-C35) Document 11/02/16 14:00 [id number] (Rec: 11/02/16 14:28 [id number] TELE-C01) General Impression: Startled-appearing, edentulous man sitting upright in chair. Speech is soft and difficult to decipher at times. Head: Symmetrical Eyes: No Scleral Icterus Ears/Nose/Mouth/Throat: Clear Oropharnyx - with lingual and buccal glossitis but no apparent candidal plaques, Mucous Membranes Moist, - - edentulous Neck: NL Appearance and Movements; NL JVP, No Thyroid Enlargement, Masses Cardiovascular: NL Sounds; No Murmurs; No JVD, RRR - with frequent ectopic beats , No Edema, - Respiratory: Clear to Auscultation Abdominal: NL Sounds; No Tenderness; No Distention Extremities: No Edema, No Clubbing, Cyanosis, - Neurological: NL Sensation, - - He knows the present month. Cooperative. No tremor. - Assessment Assessment: I had a long discussion with this patient and his , and we revisited the concepts of advance directives, and thepatient was quite clear in requesting NO intubation, and he was committed to comfort measures only. We filled out a health care proxy naming his . Although the patinet waould not want to return tot [facility] if possible, he isnot yet eligible for hospice services, as his CHF, COPD and CKD are all not severe enough to qualitfy. His CHF exacerbation is likely due to dietary indiscretion and I think he and his would do well with assistance at home with fluid status monitoring and diet surveillance. A referral to tele-health with [facility] would be appropriate. This patient would be an ideal candidate for an outpatient palliative program, as he does have significant disease and would benefit from care delivered at home as he does not like to leave the house to see doctors. Thank you for involving me in his care. - Plan Consult Plan (MU): Palliative - Time On Unit Date of Evaluation: 11/02/16 Hospice Consult Time in: 14:25 Hospice Consult Time Out: 15:35 Hospice Consult Time Total: 70 > 50% of Time Spend In Counseling or Coordinating Care: Yes
--- NOTE | 2016-11-02 15:50 | CONSULT ---
Palliative / Hospice Consult Ordering Provider: Moshe Casillas - Subjective Code Status: DNR Advance Directives Location: In Chart MOLST Part A Completed: Yes - DNR MOLST Part E Completed:: Yes - comfort AND intubation -needs revision HCP Completed: Yes - Shelby Ryder - History or Present Illness Lab Values: Abnormal Lab Results 11/02/16 05:48 Sodium 135 Potassium 3.9 Chloride 98 L Carbon Dioxide 30 Anion Gap 7 BUN 48 H Creatinine 1.67 H Est GFR ( Amer) 50.7 Est GFR (Non-Af Amer) 39.4 BUN/Creatinine Ratio 28.7 H Glucose 89 Calcium 8.1 L Laboratory Last Values WBC 9.7 10^3/ul (3.5-10.8) 10/30/16 06:16 RBC 3.75 10^6/ul (4.0-5.4) L 10/30/16 06:16 Hgb 10.5 g/dl (14.0-18.0) L 10/30/16 06:16 Hct 32 % (42-52) L 10/30/16 06:16 MCV 86 fL (80-94) 10/30/16 06:16 MCH 28 pg (27-31) 10/30/16 06:16 MCHC 33 g/dl (31-36) 10/30/16 06:16 RDW 16 % (10.5-15) H 10/30/16 06:16 Plt Count 216 10^3/ul (150-450) 10/30/16 06:16 MPV 8 um3 (7.4-10.4) 10/30/16 06:16 Neut % (Auto) 77.2 % (38-83) 10/30/16 06:16 Lymph % (Auto) 14.1 % (25-47) L 10/30/16 06:16 [place] % (Auto) 8.3 % (1-9) 10/30/16 06:16 Eos % (Auto) 0.3 % (0-6) 10/30/16 06:16 Baso % (Auto) 0.1 % (0-2) 10/30/16 06:16 Absolute Neuts (auto) 7.5 10^3/ul (1.5-7.7) 10/30/16 06:16 Absolute Lymphs (auto) 1.4 10^3/ul (1.0-4.8) 10/30/16 06:16 Absolute Monos (auto) 0.8 10^3/ul (0-0.8) 10/30/16 06:16 Absolute Eos (auto) 0 10^3/ul (0-0.6) 10/30/16 06:16 Absolute Basos (auto) 0 10^3/ul (0-0.2) 10/30/16 06:16 Absolute Nucleated RBC 0.01 10^3/ul 10/30/16 06:16 Nucleated RBC % 0.1 10/30/16 06:16 Sodium 135 mmol/L (133-145) 11/02/16 05:48 Potassium 3.9 mmol/L (3.5-5.0) 11/02/16 05:48 Chloride 98 mmol/L (101-111) L 11/02/16 05:48 Carbon Dioxide 30 mmol/L (22-32) 11/02/16 05:48 Anion Gap 7 mmol/L (2-11) 11/02/16 05:48 BUN 48 mg/dL (6-24) H 11/02/16 05:48 Creatinine 1.67 mg/dL (0.67-1.17) H 11/02/16 05:48 Est GFR ( Amer) 50.7 (>60) 11/02/16 05:48 Est GFR (Non-Af Amer) 39.4 (>60) 11/02/16 05:48 BUN/Creatinine Ratio 28.7 (8-20) H 11/02/16 05:48 Glucose 89 mg/dL (70-100) 11/02/16 05:48 Lactic Acid 1.3 mmol/L (0.5-2.0) 10/29/16 12:22 Calcium 8.1 mg/dL (8.6-10.3) L 11/02/16 05:48 Total Bilirubin 0.50 mg/dL (0.2-1.0) 10/29/16 10:10 AST 13 U/L (13-39) 10/29/16 10:10 ALT 12 U/L (7-52) 10/29/16 10:10 Alkaline Phosphatase 50 U/L (34-104) 10/29/16 10:10 Troponin I 0.06 ng/mL (<0.04) H* 10/29/16 22:10 B-Natriuretic Peptide 282 pg/mL (-100) H 10/29/16 10:10 Total Protein 6.0 g/dL (6.4-8.9) L 10/29/16 10:10 Albumin 3.0 g/dL (3.2-5.2) L 10/29/16 10:10 Globulin 3.0 g/dL (2-4) 10/29/16 10:10 Albumin/Globulin Ratio 1.0 (1-3) 10/29/16 10:10 Prealbumin 10 mg/dL (18-38) L 10/30/16 06:16 - Objective Active Medications: Acetaminophen (Tylenol Tab*) 650 mg PO Q6H PRN PRN Reason: FEVER/PAIN Last Admin: 10/30/16 18:52 Dose: 650 mg Albuterol (Ventolin 2.5 Mg/3 Ml Neb.Tiffany*) 2.5 mg INH Q2H PRN PRN Reason: SOB/WHEEZING Albuterol (Ventolin 2.5 Mg/3 Ml Neb.Tiffany*) 2.5 mg INH [id number] [facility] Last Admin: 11/02/16 13:59 Dose: 2.5 mg Aspirin (Aspirin Ec Low Dose*) [facility] Last Admin: 11/02/16 09:14 Dose: 81 mg Atorvastatin Calcium (Lipitor*) [facility] Last Admin: 11/02/16 09:14 Dose: 20 mg Benzonatate (Tessalon Cap*) 100 mg PO TID [facility] Last Admin: 11/02/16 13:46 Dose: 100 mg Bisoprolol Fumarate (Zebeta Tab*) 5 mg PO QPM [facility] Last Admin: 11/01/16 17:02 Dose: 5 mg Bupropion HCl (Wellbutrin Xl *) 150 [facility] PRN Reason: Protocol Last Admin: 11/02/16 09:13 Dose: 150 mg Doxycycline Hyclate (Vibramycin Cap(*)) 100 mg PO BID [facility] Last Admin: 11/02/16 09:14 Dose: 100 mg Duloxetine HCl (Cymbalta Cap*) 60 [facility] [place] Last Admin: 11/02/16 09:14 Dose: 60 mg Guaifenesin (Mucinex*) 1,200 mg PO BID [facility] Last Admin: 11/02/16 09:14 Dose: 1,200 mg Heparin Sodium (Porcine) (Heparin Vial(*)) 5,000 units SUBCUT Q8HR [facility] Last Admin: 11/02/16 13:46 Dose: 5,000 units Melatonin (Melatonin (Nf)) 3 mg PO BEDTIME PRN PRN Reason: SLEEP Last Admin: 10/30/16 21:33 Dose: 3 mg Mometasone Furoate/Formoterol Fumar (Dulera 200/5 Mdi*) 2 puff INH BID [facility] Last Admin: 11/02/16 08:46 Dose: 2 puff Ondansetron HCl (Zofran Inj*) 4 mg IV Q6H PRN PRN Reason: NAUSEA Prednisone (Deltasone Tab*) 60 mg PO ONCE [facility] Prednisone (Deltasone Tab*) 40 mg PO DAILY [facility] Last Admin: 11/02/16 09:15 Dose: 40 mg Quetiapine Fumarate (Seroquel Xr Tab*) 300 mg PO BEDTIME [facility] Last Admin: 11/01/16 20:49 Dose: 300 mg Senna (Senokot Tab*) 1 tab PO BEDTIME [facility] Last Admin: 11/01/16 20:49 Dose: 1 tab Tamsulosin HCl (Flomax Cap*) 0.4 mg PO QPM [facility] Last Admin: 11/01/16 17:02 Dose: 0.4 mg Tiotropium [place] (Spiriva Cap.Inh*) 1 cap INH DAILY [facility] Last Admin: 11/02/16 08:45 Dose: 1 cap Torsemide (Demadex*) 20 mg PO QAM [facility] Last Admin: 11/02/16 09:14 Dose: 20 mg Tramadol HCl (Ultram*) 50 mg PO Q6H PRN PRN Reason: PAIN Vital Signs: Vital Signs: Temp Pulse Resp BP Pulse Ox 97.4 F 80 16 111/65 100 11/02/16 12:35 11/02/16 14:00 11/02/16 14:00 11/02/16 12:35 11/02/16 14:00 Patient Weight: Weight 139 lb 11.2 oz Intake and Output: Intake & Output 10/31/16 11/01/16 11/02/16 11/03/16 06:59 06:59 06:59 06:59 Intake Total 2018 954 1821 480 Output Total 580 825 225 0 Balance 630 45 855 480 Weight 141 lb 1.6 oz 139 lb 11.2 oz Intake: Oral 8921 184 6617 480 Output: Urine 580 825 225 0 Other: Estimated Void Small Medium Small Medium # Bowel Movements 0 0 0 # Voids 2 1 1 3 ADLs: Meal Record Start: 10/29/16 18: 26 Freq: DAILY@0900,1400,1800 Status: Active Created 10/29/16 18:26 System (Rec: 10/29/16 18:26 System [email or web address]) Document 10/30/16 09:00 [id number] (Rec: 10/30/16 10:06 [id number] TELE-C01) Document 10/30/16 14:00 [id number] (Rec: 10/30/16 14:31 [id number] TELE-C01) Document 10/30/16 18:00 [id number] (Rec: 10/30/16 20:16 [id number] TELE-C13) Document 10/31/16 09:19 [id number] (Rec: 10/31/16 09:20 [id number] TELE-C01) Document 10/31/16 14:08 [id number] (Rec: 10/31/16 14:08 [id number] TELE-C01) Document 10/31/16 18:00 [id number] (Rec: 10/31/16 19:57 [id number] TELE-C09) Document 11/01/16 09:00 [id number] (Rec: 11/01/16 09:08 [id number] TELE-C01) Document 11/01/16 13:22 [id number] (Rec: 11/01/16 13:22 [id number] TELE-C01) Document 11/01/16 18:00 [id number] (Rec: 11/01/16 20:12 [id number] TELE-C01) Document 11/02/16 09:00 [id number] (Rec: 11/02/16 10:23 [id number] TELE-C07) Document 11/02/16 14:00 [id number] (Rec: 11/02/16 14:28 [id number] TELE-C01) Intake and Output Start: 10/29/16 18: 26 Freq: DAILY@0600,1400,2200 Status: Active Created 12/31/16 18:26 System (Rec: 10/29/16 18:26 System TELE-C05) Document 10/29/16 20:10 [id number] (Rec: 10/29/16 20:10 [id number] TELE-C07) Document 10/29/16 22:00 [id number] (Rec: 10/29/16 22:43 [id number] TELE-C01) Document 10/30/16 06:00 [id number] (Rec: 10/30/16 06:33 [id number] TELE-C32) Document 10/30/16 12:43 [id number] (Rec: 10/30/16 12:44 [id number] TELE-C01) Document 10/30/16 20:00 [id number] (Rec: 10/31/16 03:30 [id number] TELE-C09) Document 10/30/16 22:00 [id number] (Rec: 10/30/16 22:24 [id number] TELE-C34) Document 10/31/16 05:17 [id number] (Rec: 10/31/16 05:17 [id number] TELE-L01) Document 10/31/16 09:20 [id number] (Rec: 10/31/16 09:20 [id number] TELE-C01) Document 10/31/16 13:34 [id number] (Rec: 10/31/16 13:36 [id number] TELE-C01) Document 10/31/16 22:00 [id number] (Rec: 10/31/16 22:48 [id number] TELE-C32) Document 11/01/16 06:00 [id number] (Rec: 11/01/16 06:32 [id number] TELE-C34) Document 11/01/16 14:00 [id number] (Rec: 11/01/16 14:51 [id number] TELE-C01) Document 11/01/16 21:42 [id number] (Rec: 11/01/16 21:43 [id number] TELE-C01) Document 11/02/16 06:00 [id number] (Rec: 11/02/16 06:49 [id number] TELE-C35) Document 11/02/16 14:00 [id number] (Rec: 11/02/16 14:28 [id number] TELE-C01) Eyes: No Scleral Icterus Ears/Nose/Mouth/Throat: Clear Oropharnyx, Mucous Membranes Moist, - - edentulous Neck: NL Appearance and Movements; NL JVP, No Thyroid Enlargement, Masses Cardiovascular: NL Sounds; No Murmurs; No JVD, RRR, No Edema, - Extremities: No Edema, No Clubbing, Cyanosis, - Neurological: NL Sensation, - - He knows the present month. Cooperative. No tremor.
[2016-11-02] MEDS ORDERED: Morphine ORAL.SOLN 10 mg* 2 MG/ML UDC 5 ml PO PRN (17:08)
[2016-11-02] MEDS: Tamsulosin CAP* 0.4 MG PO SCH (17:21)
[2016-11-02] MEDS: Bisoprolol TAB* 5 MG PO SCH (17:21)
--- NOTE | 2016-11-02 17:56 | PN ---
Subjective Date of Service: 11/02/16 Interval History: Patient seen in the afternoon. Says she still feels SOB. Slightly wheezy. Denies chest pain. Has occasional cough that he says is productive but he swallows. Met with Dr. Corbett although he cannot recall much of the visit. When I mentioned his plan to go home with comfort measures and DNH he agrees that was the plan. Family History: Unchanged from Admission Social History: Unchanged from Admission Past Medical History: Unchanged from Admission Objective Active Medications: Acetaminophen (Tylenol Tab*) 650 mg PO Q6H PRN PRN Reason: FEVER/PAIN Last Admin: 10/30/16 18:52 Dose: 650 mg Albuterol (Ventolin 2.5 Mg/3 Ml Neb.Tiffany*) 2.5 mg INH Q2H PRN PRN Reason: SOB/WHEEZING Albuterol (Ventolin 2.5 Mg/3 Ml Neb.Tiffany*) 2.5 mg INH [id number] [facility] Last Admin: 11/02/16 13:59 Dose: 2.5 mg Aspirin (Aspirin Ec Low Dose*) 81 mg PO QAM [facility] Last Admin: 11/02/16 09:14 Dose: 81 mg Atorvastatin Calcium (Lipitor*) 20 mg PO QAM [facility] Last Admin: 11/02/16 09:14 Dose: 20 mg Benzonatate (Tessalon Cap*) 100 mg PO TID [facility] Last Admin: 11/02/16 13:46 Dose: 100 mg Bisoprolol Fumarate (Zebeta Tab*) 5 mg PO QPM [facility] Last Admin: 11/02/16 17:21 Dose: 5 mg Bupropion HCl (Wellbutrin Xl *) [facility] [place] PRN Reason: Protocol Last Admin: 11/02/16 09:13 Dose: 150 mg Doxycycline Hyclate (Vibramycin Cap(*)) 100 mg PO BID [facility] Last Admin: 11/02/16 09:14 Dose: 100 mg Duloxetine HCl (Cymbalta Cap*) 60 mg PO QAM [facility] Last Admin: 11/02/16 09:14 Dose: 60 mg Guaifenesin (Mucinex*) 1,200 mg PO BID [facility] Last Admin: 11/02/16 09:14 Dose: 1,200 mg Heparin Sodium (Porcine) (Heparin Vial(*)) 5,000 units SUBCUT Q8HR [facility] Last Admin: 11/02/16 13:46 Dose: 5,000 units Melatonin (Melatonin (Nf)) 3 mg PO BEDTIME PRN PRN Reason: SLEEP Last Admin: 10/30/16 21:33 Dose: 3 mg Mometasone Furoate/Formoterol Fumar (Dulera 200/5 Mdi*) 2 puff INH BID [facility] Last Admin: 11/02/16 08:46 Dose: 2 puff Morphine Sulfate (Morphine Oral.Soln 10 Mg*) 5 mg PO Q4H PRN PRN Reason: SOB/dyspnea Last Admin: 11/02/16 17:21 Dose: 5 mg Ondansetron HCl (Zofran Inj*) 4 mg IV Q6H PRN PRN Reason: NAUSEA Prednisone (Deltasone Tab*) 60 mg PO ONCE [facility] Prednisone (Deltasone Tab*) 40 mg PO DAILY [facility] Last Admin: 11/02/16 09:15 Dose: 40 mg Quetiapine Fumarate (Seroquel Xr Tab*) 300 mg PO BEDTIME [facility] Last Admin: 11/01/16 20:49 Dose: 300 mg Senna (Senokot Tab*) 1 tab PO BEDTIME [facility] Last Admin: 11/01/16 20:49 Dose: 1 tab Tamsulosin HCl (Flomax Cap*) 0.4 mg PO QPM [facility] Last Admin: 11/02/16 17:21 Dose: 0.4 mg Tiotropium [place] (Spiriva Cap.Inh*) 1 cap INH DAILY [facility] Last Admin: 11/02/16 08:45 Dose: 1 cap Torsemide (Demadex*) 20 mg PO QAM [facility] Last Admin: 11/02/16 09:14 Dose: 20 mg Tramadol HCl (Ultram*) 50 mg PO Q6H PRN PRN Reason: PAIN Vital Signs 11/01/16 11/01/16 11/01/16 19:38 20:00 20:25 Temperature 98.0 F Pulse Rate 85 86 Respiratory 20 18 Rate Blood Pressure 125/75 (mmHg) O2 Sat by Pulse 94 94 Oximetry 11/01/16 11/02/16 11/02/16 20:28 00:33 04:03 Temperature 98.3 F 98.3 F Pulse Rate 59 64 Respiratory 16 16 Rate Blood Pressure 117/53 106/52 (mmHg) O2 Sat by Pulse 94 94 94 Oximetry 11/02/16 11/02/16 11/02/16 08:52 12:02 12:35 Temperature 97.4 F 97.4 F Pulse Rate 65 65 Respiratory 20 20 Rate Blood Pressure 111/65 111/65 (mmHg) O2 Sat by Pulse 97 100 100 Oximetry 11/02/16 11/02/16 11/02/16 14:00 15:30 17:21 Temperature 97.9 F Pulse Rate 80 69 Respiratory 16 16 22 Rate Blood Pressure 121/66 (mmHg) O2 Sat by Pulse 100 98 Oximetry Oxygen Devices in Use Now: Nasal Cannula Appearance: Elderly, F, sitting in chair in NAD Eyes: No Scleral Icterus Ears/Nose/Mouth/Throat: Mucous Membranes Moist Neck: NL Appearance and Movements; NL JVP Respiratory: Symmetrical Chest Expansion and Respiratory Effort, - - Fair air movement, trace wheezing, slight rales in LLL field Cardiovascular: NL Sounds; No Murmurs; No JVD, RRR Abdominal: NL Sounds; No Tenderness; No Distention Lymphatic: No Cervical Adenopathy Extremities: No Edema Skin: No Rash or Ulcers Neurological: - - Alert, oriented, no focal deficits Result Diagrams: 10/30/16 06:16 11/02/16 05:48 Assess/Plan/Problems-Billing Assessment: Acute on chronic systolic CHF exacerbation and likely COPD exacerbation in an 86 yo M with hx of HTN, COPD on 3L home O2, CAD - Patient Problems (1) Congestive heart failure Current Visit: Yes Comment: Acute on chronic systolic CHF. Oral torsemide re- started 10/31/16. Continue for now. Creatinine around baseline. (2) COPD (chronic obstructive pulmonary disease) Current Visit: No Comment: Continue prednisone. Continue tiotropium, albuterol neb. (3) HTN (hypertension) Current Visit: No Comment: Continue bisoprolol. (4) Goals of care, counseling/discussion Current Visit: Yes Comment: Appreciate Dr. Corbett's assistance. MOLST with DNR/DNI/DNH/CCM only signed. Will plan tentative discharge tomorrow. Will speak with patient's in AM. (5) DVT prophylaxis Current Visit: No Comment: HSQ
[2016-11-02] MEDS: Senna TAB PO SCH (21:55)
[2016-11-02] MEDS: QUEtiapine XR TAB* 300 MG PO SCH (21:55)
[2016-11-03] MEDS: Albuterol 2.5 MG/3 ML NEB.SOL* (0.083%) INH SCH ×4 (00:23→20:08)
[2016-11-03] MEDS: Heparin VIAL(*) 5000 UNITS/ML VIAL (FIVE THOUSAND) SUBCUT SCH ×3 (06:10→21:32)
[2016-11-03] MEDS: Mometasone/Formoter 200/5 MDI INH SCH ×2 (08:19→20:15)
[2016-11-03] MEDS: Tiotropium CAP.INH* CAP.INH/18 MCG (USE ORDER SET !) INH SCH (08:19)
[2016-11-03] MEDS: guaiFENesin ER TAB 600 MG PO SCH ×2 (08:38→20:06)
[2016-11-03] MEDS: Benzonatate CAP* 100 MG PO SCH ×3 (08:38→20:06)
[2016-11-03] MEDS: BuPROPion XL* 150 MG TAB.XL PO SCH (08:38)
[2016-11-03] MEDS: Aspirin EC Low Dose* 81 MG TAB.EC PO SCH (08:38)
[2016-11-03] MEDS: Torsemide TAB* 20 MG PO SCH (08:38)
[2016-11-03] MEDS: predniSONE TAB* 20 MG PO SCH (08:38)
[2016-11-03] MEDS: DULoxetine DR CAP* 30 MG CAP.DR PO SCH (08:38)
[2016-11-03] MEDS: DOXYcycline CAP(*) 100 MG PO SCH ×2 (08:39→20:06)
[2016-11-03] MEDS: Atorvastatin* 20 MG TAB PO SCH (08:39)
--- NOTE | 2016-11-03 15:18 | PN ---
Subjective Date of Service: 11/03/16 Interval History: Patient seen this morning and again in the afternoon. Was lethargic this morning and a bit rude, improved over the course of the day. He reported feeling OK later in the day, a but tired, denied SOB. Spoke with him and his and she confirms that she would like to take him home although thinks she may need assistance in getting him into the house. She feels that she can handle him and if it's too much she said she will "figure something out". When pressed on this she says she will need to find a long-term for him. Confirmed her prior discussion with Dr. Corbett that he will be DNR/DNI/DNH/ [facility] [employer]. Family History: Unchanged from Admission Social History: Unchanged from Admission Past Medical History: Unchanged from Admission Objective Active Medications: Acetaminophen (Tylenol Tab*) 650 mg PO Q6H PRN Albuterol (Ventolin 2.5 Mg/3 Ml Neb.Tiffany*) 2.5 mg INH Q2H PRN Albuterol (Ventolin 2.5 Mg/3 Ml Neb.Tiffany*) 2.5 mg INH [id number] [facility] Aspirin (Aspirin Ec Low Dose*) 81 mg PO QAM [facility] Atorvastatin Calcium (Lipitor*) 20 mg PO QAM [facility] Benzonatate (Tessalon Cap*) 100 mg PO TID [facility] Bisoprolol Fumarate (Zebeta Tab*) 5 mg PO QPM [facility] Bupropion HCl (Wellbutrin Xl *) 150 mg PO QAM [facility] Doxycycline Hyclate (Vibramycin Cap(*)) 100 mg PO BID [facility] Duloxetine HCl (Cymbalta Cap*) 60 mg PO QAM [facility] Guaifenesin (Mucinex*) 1,200 mg PO BID [facility] Heparin Sodium (Porcine) (Heparin Vial(*)) 5,000 units SUBCUT Q8HR [facility] Melatonin (Melatonin (Nf)) 3 mg PO BEDTIME PRN Mometasone Furoate/Formoterol Fumar (Dulera 200/5 Mdi*) 2 puff INH BID [facility] Ondansetron HCl (Zofran Inj*) 4 mg IV Q6H PRN Prednisone (Deltasone Tab*) 60 mg PO ONCE [facility] Prednisone (Deltasone Tab*) 40 mg PO DAILY [facility] Quetiapine Fumarate (Seroquel Xr Tab*) 300 mg PO BEDTIME [facility] Senna (Senokot Tab*) 1 tab PO BEDTIME [facility] Tamsulosin HCl (Flomax Cap*) 0.4 mg PO QPM [facility] Tiotropium [place] (Spiriva Cap.Inh*) 1 cap INH DAILY [facility] Torsemide (Demadex*) 20 mg PO QAM [facility] Tramadol HCl (Ultram*) 50 mg PO Q6H PRN Vital Signs 11/02/16 11/02/16 11/02/16 15:30 17:21 19:21 Temperature 97.9 F Pulse Rate 69 Respiratory 16 22 20 Rate Blood Pressure 121/66 (mmHg) O2 Sat by Pulse 98 Oximetry 11/02/16 11/02/16 11/03/16 19:40 20:00 00:00 Temperature 98.4 F Pulse Rate 72 63 Respiratory 16 16 Rate Blood Pressure 112/74 (mmHg) O2 Sat by Pulse 100 95 96 Oximetry 11/03/16 11/03/16 11/03/16 01:23 03:52 08:15 Temperature 98.3 F 98.2 F 98.1 F Pulse Rate 98 63 65 Respiratory 20 20 18 Rate Blood Pressure 141/71 119/69 106/59 (mmHg) O2 Sat by Pulse 93 90 100 Oximetry 11/03/16 11/03/16 11/03/16 08:20 08:25 10:17 Temperature 97.5 F Pulse Rate 68 70 Respiratory 16 16 22 Rate Blood Pressure 116/57 (mmHg) O2 Sat by Pulse 97 100 Oximetry Oxygen Devices in Use Now: Nasal Cannula Appearance: Elderly, edentulous, M, sitting in chair in NAD Eyes: No Scleral Icterus Ears/Nose/Mouth/Throat: - - Dry MM Neck: NL Appearance and Movements; NL JVP Respiratory: Symmetrical Chest Expansion and Respiratory Effort, - - Poor air movement, slight wheeze, no rales appreciated Cardiovascular: NL Sounds; No Murmurs; No JVD, RRR Abdominal: NL Sounds; No Tenderness; No Distention Lymphatic: No Cervical Adenopathy Extremities: No Edema Skin: No Rash or Ulcers Neurological: - - Alert, oriented to self and place, no focal deficits Result Diagrams: 10/30/16 06:16 11/02/16 05:48 Assess/Plan/Problems-Billing Assessment: Acute on chronic systolic CHF exacerbation and likely COPD exacerbation in an 86 yo M with hx of HTN, COPD on 3L home O2, CAD - Patient Problems (1) Congestive heart failure Current Visit: Yes Comment: Acute on chronic systolic CHF. Oral torsemide re- started 10/31/16. Continue for now. Creatinine around baseline. (2) COPD (chronic obstructive pulmonary disease) Current Visit: No Comment: Continue prednisone. Continue tiotropium, albuterol neb. Gave the patient Morphine last night with ?residual effect this morning due to CKD. Will hold additional morphine at the moement. Can consider trial on discharge. (3) HTN (hypertension) Current Visit: No Comment: Continue bisoprolol. (4) Goals of care, counseling/discussion Current Visit: Yes Comment: Appreciate Dr. Corbett's assistance. MOLST with DNR/DNI/DNH/CCM only signed. Spoke with patient's who is on board. Will plan for tentative discharge tomorrow, 11/04. (5) DVT prophylaxis Current Visit: No Comment: HSQ
[2016-11-03] MEDS: Tamsulosin CAP* 0.4 MG PO SCH (17:13)
[2016-11-03] MEDS: Bisoprolol TAB* 5 MG PO SCH (17:13)
[2016-11-03] MEDS: Senna TAB PO SCH (20:06)
[2016-11-03] MEDS: QUEtiapine XR TAB* 300 MG PO SCH (20:06)
[2016-11-03] MEDS ORDERED: Al Hydrox/Mg Hydrox/Simet LIQ* 30 ML UDC PO ONE (21:18)
[2016-11-04] MEDS: Albuterol 2.5 MG/3 ML NEB.SOL* (0.083%) INH SCH ×3 (00:15→13:54)
[2016-11-04] MEDS ORDERED: oxyCODONE TAB* 5 MG TAB PO PRN (01:01)
[2016-11-04] MEDS: Melatonin (NF) 3 MG TAB PO PRN (01:21)
[2016-11-04] MEDS: Heparin VIAL(*) 5000 UNITS/ML VIAL (FIVE THOUSAND) SUBCUT SCH ×2 (06:40→13:29)
[2016-11-04] MEDS: Tiotropium CAP.INH* CAP.INH/18 MCG (USE ORDER SET !) INH SCH (08:00)
[2016-11-04] MEDS: Mometasone/Formoter 200/5 MDI INH SCH (08:01)
[2016-11-04 08:27] VITALS: BP 110/48
[2016-11-04] MEDS: guaiFENesin ER TAB 600 MG PO SCH (08:44)
[2016-11-04] MEDS: Torsemide TAB* 20 MG PO SCH (08:44)
[2016-11-04] MEDS: Benzonatate CAP* 100 MG PO SCH ×2 (08:45→14:14)
[2016-11-04] MEDS: Aspirin EC Low Dose* 81 MG TAB.EC PO SCH (08:45)
[2016-11-04] MEDS: DULoxetine DR CAP* 30 MG CAP.DR PO SCH (08:45)
[2016-11-04] MEDS: predniSONE TAB* 20 MG PO SCH (08:45)
[2016-11-04] MEDS: Atorvastatin* 20 MG TAB PO SCH (08:45)
[2016-11-04] MEDS: BuPROPion XL* 150 MG TAB.XL PO SCH (08:45)
[2016-11-04] MEDS: DOXYcycline CAP(*) 100 MG PO SCH (08:45)
--- NOTE | 2016-11-05 14:52 | DS ---
DISCHARGE SUMMARY: DATE OF ADMISSION: 10/29/16 DATE OF DISCHARGE: 11/04/16 PRIMARY CARE PHYSICIAN: Dr. Velázquez. PRIMARY DIAGNOSES: 1. Acute on chronic systolic congestive heart failure exacerbation. 2. Chronic obstructive pulmonary disease exacerbation. SECONDARY DIAGNOSES: 1. Hypertension. 2. Coronary artery disease. 3. Hyperlipidemia. 4. Obstructive sleep apnea. 5. Depression. 6. Chronic lower back pain. 7. BPH. MEDICATIONS ON DISCHARGE: 1. Tiotropium 1 cap inhaled daily. 2. Brovana 15 mcg inhaled twice daily. 3. Albuterol or DuoNeb 1 neb every 12 hours. 4. Senna/Docusate 1 tab at bedtime. 5. Tessalon caps 200 mg 3 times daily. 6. Atorvastatin 20 mg in the morning. 7. Acetaminophen 1000 mg in the morning as needed. 8. Wellbutrin XL 150 mg in the morning. 9. Pulmicort 1 mg twice daily. 10. Bisoprolol 5 mg in the evening. 11. Aspirin 81 mg daily. 12. Dulera 100/5 two puffs inhaled twice daily. 13. Cymbalta 90 mg in the morning. 14. Mucinex 600 mg twice daily. 15. Torsemide 40 mg in the morning. 16. Tamsulosin 0.4 mg in the evening. 17. Seroquel XR 300 mg at bedtime. 18. Multivitamin 1 tab daily. 19. Prednisone 40 mg daily for 3 additional days. 20. Oxycodone 5 mg every 6 hours as needed for pain or shortness of breath. HISTORY OF PRESENT ILLNESS AND HOSPITAL COURSE: An 86-year-old man, recent hospital stay at [facility] [place] [facility] discharged on 10/04/16 at [facility] for acute rehab discharge day prior to presentation from [facility] after eating salt and drinking probably an excessive water, presenting with shortness of breath, thought to be in COPD exacerbation as well as CHF exacerbation. He was treated with reinstitution of his torsemide as well as steroids with improvement. He was seen in conjunction with Dr. Katrina Corbett. Per conversation with the patient and the patient's healthcare proxy/his , the patient wanted to be DNR/DNI, do not hospitalize, and treatment with comfort care with palliative approach only. He was not a candidate for hospice at this time. On the day of discharge, this was reviewed with the patient. He acknowledged that he wanted to be treated with a comfort intent. He was not keen on changing home medications at this time. I discussed with the on the phone prior to his discharge, confirmed that this was still the plan with discharge home to her care. I asked specifically if she had the resources and equipment at home in order to care for the patient, which she replied, "she had been providing it before." There are no questions from the patient or his healthcare proxy at the time of discharge. Reasons to return to the hospital were discussed with the patient including uncontrolled symptoms at home. He had a poor reaction to morphine including hypotension during the course of the hospital stay. He was discharged with oxycodone in lieu of morphine. TIME SPENT: Greater than 45 minutes was spent in the discharge of the patient; greater than half was spent [id number] with the patient. CC: Dr. Velázquez * [id number]/CPS #: [id number] MTDD
== END 2016-11-04 14:25 | disposition home or self-care (01) | DRG 190 ==
LOC: ED 10:03 → MEDTELE 17:58 → MED 11-04 01:44
PROVIDERS: ADMIT Hospitalist; ATTEND Internal Medicine
DX: J44.1 Chronic obstructive pulmonary disease with (acute) exacerbation (principal); I50.23 Acute on chronic systolic (congestive) heart failure; I24.8 Other forms of acute ischemic heart disease; B37.0 Candidal stomatitis; I25.810 Atherosclerosis of coronary artery bypass graft(s) without angina pectoris; Z99.81 Dependence on supplemental oxygen; I11.0 Hypertensive heart disease with heart failure; E78.5 Hyperlipidemia, unspecified; G47.33 Obstructive sleep apnea (adult) (pediatric); F32.9 Major depressive disorder, single episode, unspecified; M54.40 Lumbago with sciatica, unspecified side; N40.0 Benign prostatic hyperplasia without lower urinary tract symptoms; F10.21 Alcohol dependence, in remission; Z66 Do not resuscitate; Z86.73 Personal history of transient ischemic attack (TIA), and cerebral infarction without residual deficits; Z88.2 Allergy status to sulfonamides; Z79.1 Long term (current) use of non-steroidal anti-inflammatories (NSAID); Z79.82 Long term (current) use of aspirin; Z79.899 Other long term (current) drug therapy; Z87.891 Personal history of nicotine dependence; Z95.1 Presence of aortocoronary bypass graft
CPT/HCPCS: 36415; 71010; 80048; 80053; 83605; 83880; 84134; 84484; 85025; 87040; 87641; 93005; 94640; 94760; 99285; A9270-GY; J1644; J1940; J2920; J7512

== ENCOUNTER 2016-11-13 20:09 | Inpatient (IN) | payer MEDICARE, OTHER ==
[2016-11-13] MEDS ORDERED: Aspirin Low Dose CHEW TAB* 81 MG PO ONE (20:41)
--- NOTE | 2016-11-13 21:02 | RAD ---
INDICATION: Weakness COMPARISON: October 29, 2016 TECHNIQUE: An AP portable view obtained at 2025 hours is submitted. FINDINGS: Bones/Soft Tissues: There are no acute bony findings. There is sternotomy/CABG Cardiomediastinal: The heart is normal in size. There is mild interstitial congestion. Lungs: There is hyperinflation with chronic interstitial changes most prominent in the lung bases. Pleura: Bilateral pleural effusions left greater than right. Other: None IMPRESSION: HYPERINFLATION WITH CHRONIC INTERSTITIAL CHANGES. MILD INTERSTITIAL CONGESTION WITH PLEURAL EFFUSIONS. THERE IS MILD IMPROVEMENT IN AERATION OF THE LEFT LUNG BASE.
[2016-11-13 21:30] LABS: Hematocrit 37 % (42-52); Hemoglobin 11.6 g/dl (14.0-18.0); Mean Corpuscular HGB Conc 31 g/dl (31-36); Mean Corpuscular Hemoglobin 27 pg (27-31); Mean Corpuscular Volume 86 fL (80-94); Mean Platelet Volume 9 um3 (7.4-10.4); Red Blood Count 4.27 10^6/ul (4.0-5.4); Red Cell Distribution Width 16 % (10.5-15); White Blood Count 13.4 10^3/ul (3.5-10.8)
[2016-11-13 21:47] LABS: BUN/Creatinine Ratio 26.3 (8-20); Calcium 8.8 mg/dL (8.6-10.3); EGFR Non-African American 37.3 (>60); Globulin 3.3 g/dL (2-4); Magnesium 3.1 mg/dL (1.9-2.7); Potassium 4.5 mmol/L (3.5-5.0); Total Bilirubin 0.5 mg/dL (0.2-1.0); Total Protein 6.3 g/dL (6.4-8.9)
[2016-11-13 21:53] LABS: Troponin I 0.07 ng/mL (<0.04)
[2016-11-13 22:01] LABS: Add Diff/Slide Review? Slide Review Added; Comments Flag Yes
[2016-11-13 22:05] LABS: Urine Bacteria Absent (Absent); Urine Bilirubin Negative (Negative); Urine Glucose Negative (Negative); Urine Nitrite Negative (Negative)
[2016-11-13 22:22] LABS: TSH (Thyroid Stimulating Horm) 4.18 mcIU/mL (0.34-5.60)
[2016-11-13 22:31] LABS: Immature Granulocytes 7 % (0-9); Metamyelocytes % 2 % (0-2); Myelocytes % 2 % (0-1); Neutrophil % 76 % (38-83); Reactive Lymph % 5 % (0-6)
[2016-11-13 22:32] LABS: Hypochromasia 1+; Macrocytosis 1+
[2016-11-13 22:33] LABS: Toxic Granulation 1+
--- NOTE | 2016-11-13 22:48 | ED ---
Andre Field Erika, scribed for Fabrice Castellanos MD on 11/13/16 at 2046 . Complex/Multi-Sys Presentation - HPI Summary HPI Summary: Patient is an 86-year-old male presenting to the ED with a CC of constant, gradually worsening generalized weakness. Associated symptoms include SOB, productive cough, and decreased PO intake. Pt denies fever, headache, abdominal pain, diarrhea, and any pain. He states he lives with his . - History Of Current Complaint Chief Complaint: EDWeakness Time Seen by Provider: 11/13/16 20:32 Hx Obtained From: Patient Onset/Duration: Gradual Onset, Worse Since Timing: Constant Severity Currently: Moderate Associated Signs And Symptoms: Positive: Weakness, SOB, Cough, Decreased Oral Intake. Negative: Headache, Diarrhea, Abdominal Pain, Fever - Allergies/Home Medications Allergies/Adverse Reactions: Allergies Allergy/AdvReac Type Severity Reaction Status Date / Time Sulfa Drugs Allergy Unknown Unknown Verified 11/29/14 23:58 Reaction Details PMH/Surg Hx/FS Hx/Imm Hx Cardiovascular History: Reports: Hx Congestive Heart Failure, Hx Coronary Artery Disease, Hx Hypercholesterolemia, Hx Hypertension, Other Cardiovascular Problems/Disorders - 4 bypasses Respiratory History: Reports: Hx Chronic Bronchitis, Hx Chronic Obstructive Pulmonary Disease (COPD), Hx Pneumonia, Hx Sleep Apnea History: Reports: Hx Benign Prostatic Hyperplasia Musculoskeletal History: Reports: Hx Arthritis, Hx Back Problems, Hx Gout Sensory History: Reports: Hx Contacts or Glasses, Hx Hearing Aid Opthamlomology History: Reports: Hx Contacts or Glasses Neurological History: Reports: Other Neuro Impairments/Disorders - patient and note minor stroke Psychiatric History: Reports: Hx Anxiety, Hx Depression, Hx Suicide Attempt - Surgical History Surgery Procedure, Year, and Place: Had cyst removed from back; 4 cardiac bypasses; Deviated septum repair; Cataract Surgery Hx Anesthesia Reactions: No Infectious Disease History: Unable to Obtain/Confirm Infectious Disease History: Denies: Traveled Outside the [place] in Last 30 Days - Family History Known Family History: Negative: Diabetes - Social History Lives: With Family Alcohol Use: None Hx Substance Use: No Substance Use Type: Reports: None Hx Tobacco Use: Yes Smoking Status (MU): Former Smoker Type: Cigarettes Amount Used/How Often: 1.5 ppd Length of Time of Smoking/Using Tobacco: 50 years Have You Smoked in the Last Year: No Review of Systems Negative: Fever Positive: Shortness Of Breath, Cough Positive: Other - decreased PO intake. Negative: Abdominal Pain, Diarrhea Negative: Arthralgia, Myalgia Positive: Weakness. Negative: Headache All Other Systems Reviewed And Are Negative: Yes Physical Exam - Summary Physical Exam Summary: VITAL SIGNS: Reviewed. GENERAL: Patient is a well developed and nourished fragile male who is lying comfortable in the stretcher. Patient is not in any acute respiratory distress. HEAD AND FACE: No signs of trauma. No ecchymosis, hematomas or skull depressions. EYES: PERRLA, EOMI x 2, No injected conjunctiva, no nystagmus. EARS: Hearing grossly intact. Ear canals and tympanic membranes are within normal limits. MOUTH: Dry nasal and oral mucosa NECK: Supple, trachea is midline, no adenopathy, no JVD. CHEST: Symmetric, no tenderness at palpation LUNGS: Clear to auscultation bilaterally. No wheezing or crackles. CVS: Regular rate and rhythm, S1 and S2 present, no murmurs or gallops appreciated. ABDOMEN: Soft, non-tender. No signs of distention. No rebound no guarding, and no masses palpated. Bowel sounds are normal. EXTREMITIES: FROM in all major joints, no edema, no cyanosis or clubbing. NEURO: Alert and oriented x 3. No acute neurological deficits. Speech is normal and follows commands. SKIN: Dry and warm Triage Information Reviewed: Yes Vital Signs On Initial Exam: Initial Vitals Temp Pulse Resp BP Pulse Ox 97.1 F 75 24 120/70 96 11/13/16 20:15 11/13/16 20:15 11/13/16 20:15 11/13/16 20:15 11/13/16 20:15 Vital Signs Reviewed: Yes Diagnostics - Vital Signs Vital Signs Temp Pulse Resp BP Pulse Ox 11/13/16 20:15 97.1 F 75 24 120/70 96 - Laboratory Result Diagrams: 11/13/16 21:20 11/13/16 21:20 Lab Statement: Any lab studies that have been ordered have been reviewed, and results considered in the medical decision making process. - Radiology CXR Radiology Interpretation Completed By: Radiologist - IMPRESSION: HYPERINFLATION WITH CHRONIC INTERSTITIAL CHANGES. MILD INTERSTITIAL CONGESTION WITH PLEURAL EFFUSIONS. THERE IS MILD IMPROVEMENT IN AERATION OF THE LEFT LUNG BASE. - EKG 20:58 Cardiac Rate: NL - at 71 bpm EKG Rhythm: Sinus Rhythm EKG Interpretation: No ST elevation Complex Multi-Symp Course/Dx Assessment/Plan: Patient is an 86-year-old male presenting to the ED with a CC of constant, gradually worsening generalized weakness. Associated symptoms include SOB, productive cough, and decreased PO intake. Pt denies fever, headache, abdominal pain, diarrhea, and any pain. He states he lives with his . Blood work shows and slight increase in WBCs mild chronic anemia, Chronic renal failure, chronic increases in troponin and BNP. All his lab work is at his base line. CXR shows Hyperinflation with chronic interstitial changes. Mild interstitial congestion with pleural effusions. EKG shows no JULIETA. In the ED course he is unable to ambulate. He is very weak and unable to care for himself. We tried to ambulate the patient in the ED with a walker and he is not able to ambulate. We tried calling his at her home and cell phone and there was no answer. I discuss my physical exam, findings and test results with Dr. Gross from the hospitalist services and she agrees to admit patient to his services. Patient is hemodynamically stable alert and oriented x 3. - Diagnoses Differential Diagnoses/HQI/PQRI: Urinary Tract Infection, Other - Weakness Provider Diagnoses: Generalized weakness - Physician Notifications Discussed Care Of Patient With: Dr. Buitrago (hospitalist) at 22:37 - agrees to admit Discharge - Discharge Plan Condition: Stable Disposition: ADMITTED TO [facility] The documentation as recorded by the Andre andino Erika accurately reflects the service I personally performed and the decisions made by me, aFbrice Castellanos MD.
[2016-11-14] MEDS ORDERED: Acetaminophen TAB* 325 MG PO PRN (02:40)
[2016-11-14] MEDS ORDERED: oxyCODONE TAB* 5 MG TAB PO PRN (02:40)
[2016-11-14] MEDS ORDERED: Albuterol/Ipratropium NEB.SOL* Albuterol 2.5 MG/Ipratropium 0.5 MG 3 ML INH PRN (02:40)
[2016-11-14] MEDS ORDERED: Albuterol/Ipratropium NEB.SOL* Albuterol 2.5 MG/Ipratropium 0.5 MG 3 ML INH SCH ×2 (03:00→07:00)
[2016-11-14] MEDS: Heparin VIAL(*) 5000 UNITS/ML VIAL (FIVE THOUSAND) SUBCUT SCH ×3 (05:36→21:33)
--- NOTE | 2016-11-14 06:42 | HP ---
HISTORY AND PHYSICAL: DATE OF ADMISSION: 11/14/16 CHIEF COMPLAINT: Weakness. HISTORY OF PRESENT ILLNESS: The patient is an 86-year-old gentleman recently discharged from [facility] who was sent there over from his because he has been getting increasingly weak with no appetite and not eating. He has no nausea, vomiting, no pain. No abdominal pain. No fevers or chills. He has no problems urinating. No increased frequency or pain on urination. He is not increasingly short of breath. Apparently, he was supposed to be put on comfort care at home, but his is having trouble caring for him because he is too heavy for her to manipulate. The patient himself does not want to go to rehab or nursing home facility, so this has become quite problematic. PAST MEDICAL HISTORY: Significant for coronary artery disease with four vessel CABG, COPD 3 L, hemorrhagic CVA, hypertension, hyperlipidemia, obstructive sleep apnea, depression, chronic low back pain with sciatica, suicide attempt, BPH. CURRENT MEDICATIONS: Are as follows: 1. Oxycodone 5 mg every 6 hours as needed. 2. Spiriva 1 inhalation daily. 3. Brovana 15 mcg inhaled twice daily. 4. DuoNeb 1 nebulizer q. 12 hours. 5. Senna 1 tablet at bedtime. 6. Dulera 2 puffs twice daily. 7. Tessalon Perles 200 mg three times a day. 8. Multivitamin 1 tablet in the morning. 9. Duloxetine 90 mg in the morning. 10. Wellbutrin XL 150 mg in the morning. 11. Budesonide 1 inhalation twice daily. 12. Aspirin 81 mg in the morning. 13. DuoNeb 1 nebulization q. 4 hours as needed. 14. Acetaminophen 1000 mg in the morning. 15. Guaifenesin 600 mg twice daily. 16. Torsemide 40 mg in the morning. 17. Flomax 0.4 mg in the evening. 18. Seroquel XR 300 mg at bedtime. 19. Zebeta 5 mg in the evening. 20. Lipitor 20 mg in the morning. 21. Prednisone 40 mg daily. ALLERGIES: He has an allergy/adverse reaction to SULFA drugs. FAMILY HISTORY: Reviewed and noncontributory. 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 No recreational drugs. Lives with his who is his healthcare proxy. He is supposed to be a do not resuscitate now. REVIEW OF SYSTEMS: A 14-point review of systems is completed with the patient. All pertinent positives and negatives are in the history of present illness, otherwise it is negative. PHYSICAL EXAMINATION GENERAL: A pleasant gentleman lying in bed, in no acute distress. VITAL SIGNS: Temperature is 98.1 degrees, heart rate 76 beats per minute, respiratory rate 21 breaths per minute, pulse ox 89%, blood pressure 113/63. HEENT: Normocephalic and atraumatic. Pupils are equal, round and reactive to light. Moist mucous membranes. NECK: Supple. No JVD, bruits, palpable thyroid or lymphadenopathy. CHEST: Clear to auscultation. CARDIOVASCULAR: S1, S2 appreciated. ABDOMEN: Positive bowel sounds in all 4 quadrants. Soft, nontender, and nondistended. EXTREMITIES: No cyanosis or clubbing. +2 peripheral pulses bilaterally. NEUROLOGIC: Alert and oriented x3. Moves all extremities. SKIN: No rashes or abnormalities. LABORATORY DATA: White count 13.4, hemoglobin 11.6, hematocrit 37, platelets 251. Sodium 139, potassium 4.5, chloride 99, CO2 32, BUN 42, creat 1.75, glucose is 81, troponin 0.07. Urinalysis, trace leukocyte esterase, no white cells, +2 rbc's. Chest x-ray was interpreted by Radiology as hyperinflation, chronic interstitial changes, mild interstitial congestion, pleural effusion, mild improvement in aeration of left lung base. EKG shows normal sinus rhythm at 71 beats per minute. Normal axis. No acute ST -T wave changes. ASSESSMENT AND PLAN: 1. Weakness. Uncertain etiology, but apparently the patient was also supposed to get some new meds from his PCP and this was over 2 weeks ago and he brings them in and never got them filled. I think the patient needs to be in a nursing home facility. His can no longer care for him. I will get social work to evaluate him. 2. Hypertension. Stable. Continue current regimen. 3. Hyperlipidemia. Stable. Continue current medications. 4. COPD. Continue supplemental oxygen and medications as prescribed. 5. FEN. Regular diet. 6. DVT prophylaxis. Heparin subcu. 7. The patient is a do not resuscitate. TIME SPENT: Over 80 minutes were spent on this H and P; more than 45 minutes was spent in direct [id number] contact with the patient in evaluation, physical exam, counseling, and coordination of care. CC: Dr. Maxx Velázquez* [id number]/[facility] #: [id number] ELLIOT
[2016-11-14] MEDS: Budesonide NEB* 0.5 MG/2 ML NEB.SOLN INH SCH ×2 (07:37→20:18)
[2016-11-14] MEDS: Mometasone/Formoter 100/5 MDI INH SCH ×2 (07:38→20:19)
[2016-11-14] MEDS: Tiotropium CAP.INH* CAP.INH/18 MCG (USE ORDER SET !) INH SCH (07:38)
[2016-11-14] MEDS: DULoxetine DR CAP* 30 MG CAP.DR PO SCH (08:44)
[2016-11-14] MEDS: Torsemide TAB* 20 MG PO SCH (08:45)
[2016-11-14] MEDS: Aspirin EC Low Dose* 81 MG TAB.EC PO SCH (08:47)
[2016-11-14] MEDS: guaiFENesin ER TAB 600 MG PO SCH ×2 (08:48→21:45)
[2016-11-14] MEDS: BuPROPion XL* 150 MG TAB.XL PO SCH (08:48)
[2016-11-14] MEDS ORDERED: Arformoterol (NF) 15 MCG/2 ML NEB.SOLN INH SCH (09:00)
[2016-11-14] MEDS ORDERED: Spiriva Inhaler DEVICE* 1 EACH DEVICE INH ONE (09:00)
[2016-11-14] MEDS ORDERED: predniSONE TAB* 20 MG PO SCH (09:00)
[2016-11-14] MEDS ORDERED: Benzonatate CAP* 100 MG PO SCH (09:00)
[2016-11-14] MEDS ORDERED: Atorvastatin* 20 MG TAB PO SCH (09:00)
[2016-11-14] MEDS: Multivitamins/Minerals TAB PO SCH (09:22)
[2016-11-14 09:35] LABS: Hematocrit 35 % (42-52); Hemoglobin 11.2 g/dl (14.0-18.0); Mean Corpuscular HGB Conc 32 g/dl (31-36); Mean Corpuscular Hemoglobin 27 pg (27-31); Mean Corpuscular Volume 86 fL (80-94); Mean Platelet Volume 9 um3 (7.4-10.4); Red Blood Count 4.12 10^6/ul (4.0-5.4); Red Cell Distribution Width 15 % (10.5-15); White Blood Count 12.2 10^3/ul (3.5-10.8)
[2016-11-14 09:38] LABS: Add Diff/Slide Review? Slide Review Added; Comments Flag Yes
[2016-11-14 09:50] LABS: BUN/Creatinine Ratio 26.3 (8-20); Calcium 8.6 mg/dL (8.6-10.3); EGFR African American 54.8 (>60); EGFR Non-African American 42.6 (>60); Potassium 4.5 mmol/L (3.5-5.0)
[2016-11-14 09:55] LABS: Troponin I 0.06 ng/mL (<0.04)
--- NOTE | 2016-11-14 09:56 | CONSULT ---
Palliative / Hospice Consult Ordering Provider: Heriberto Buitrago - Subjective Code Status: DNR Advance Directives Location: In Chart MOLST Part A Completed: Yes - DNR MOLST Part E Completed:: Yes - DNI, comfort measures only HCP Completed: Yes - [place] - History or Present Illness History or Present Illness: This is the third hospitalization in 2 months for this 86 year old man with COPD , CHF and CRF. He was admitted in September 2016 with fluid overload believed to be secondary to dietary indiscretion after discharge from short-term rehab at [facility]. However, despite VNS services at home working with him and his to appropriately monitor sodium and weight and CHF symptoms, the patient has deteriorated with increasing weakness and anorexia at home. His is unable to care for him at this time. In reviewing his weights, it appears that on 09/28/16 he weighed 160 lbs., and on 10/29 when he was admitted with fluid overload he was 147 lb. On this admission he is 130 lb. His albumin is now 3.0, he still has Stage 3 CKD, troponins are 0.07 and BNP 254. The patient is coversational and oriented x 3, and he says he would like to remain at home but understands that this may not be possible. He currently denies any symptoms requiring palliation other than anorexia. In speaking with his , however, she notes that he has not had a bowel movement in over a week, and she tried MOM at home with no success. Lab Values: Abnormal Lab Results 11/14/16 09:28 WBC 12.2 H RBC 4.12 Hgb 11.2 L Hct 35 L MCV 86 MCH 27 MCHC 32 RDW 15 Plt Count 243 MPV 9 Neut % (Auto) 80.4 Lymph % (Auto) 13.3 L Frederick % (Auto) 5.7 Eos % (Auto) 0.1 Baso % (Auto) 0.5 Absolute Neuts (auto) 9.8 H Absolute Lymphs (auto) 1.6 Absolute Monos (auto) 0.7 Absolute Eos (auto) 0 Absolute Basos (auto) 0.1 Absolute Nucleated RBC 0 Nucleated RBC % 0 Laboratory Last Values WBC 12.2 10^3/ul (3.5-10.8) H 11/14/16 09:28 RBC 4.12 10^6/ul (4.0-5.4) 11/14/16 09:28 Hgb 11.2 g/dl (14.0-18.0) L 11/14/16 09:28 Hct 35 % (42-52) L 11/14/16 09:28 MCV 86 fL (80-94) 11/14/16 09:28 MCH 27 pg (27-31) 11/14/16 09:28 MCHC 32 g/dl (31-36) 11/14/16 09:28 RDW 15 % (10.5-15) 11/14/16 09:28 Plt Count 243 10^3/ul (150-450) 11/14/16 09:28 MPV 9 um3 (7.4-10.4) 11/14/16 09:28 Immature Gran % (Auto) 7 % (0-9) 11/13/16 21:20 Neut % (Auto) 80.4 % (38-83) 11/14/16 09:28 Lymph % (Auto) 13.3 % (25-47) L 11/14/16 09:28 Frederick % (Auto) 5.7 % (1-9) 11/14/16 09:28 Eos % (Auto) 0.1 % (0-6) 11/14/16 09:28 Baso % (Auto) 0.5 % (0-2) 11/14/16 09:28 Absolute Neuts (auto) 9.8 10^3/ul (1.5-7.7) H 11/14/16 09:28 Absolute Lymphs (auto) 1.6 10^3/ul (1.0-4.8) 11/14/16 09:28 Absolute Monos (auto) 0.7 10^3/ul (0-0.8) 11/14/16 09:28 Absolute Eos (auto) 0 10^3/ul (0-0.6) 11/14/16 09:28 Absolute Basos (auto) 0.1 10^3/ul (0-0.2) 11/14/16 09:28 Absolute Nucleated RBC 0 10^3/ul 11/14/16 09:28 Neutrophils % 76 % (38-83) 11/13/16 21:20 Band Neutrophils % 3 % (0-8) 11/13/16 21:20 Lymphocytes % 8 % (25-47) L 11/13/16 21:20 Reactive Lymphs % 5 % (0-6) 11/13/16 21:20 Monocytes % 4 % (0-13) 11/13/16 21:20 Metamyelocytes % 2 % (0-2) 11/13/16 21:20 Myelocytes % 2 % (0-1) H 11/13/16 21:20 Nucleated RBC % 0 11/14/16 09:28 Toxic Granulation 1+ 11/13/16 21:20 Normal RBC Morphology Not Reportable 11/13/16 21:20 Hypochromasia 1+ 11/13/16 21:20 Macrocytosis 1+ 11/13/16 21:20 Sodium 139 mmol/L (133-145) 11/13/16 21:20 Potassium 4.5 mmol/L (3.5-5.0) 11/13/16 21:20 Chloride 99 mmol/L (101-111) L 11/13/16 21:20 Carbon Dioxide 32 mmol/L (22-32) 11/13/16 21:20 Anion Gap 8 mmol/L (2-11) 11/13/16 21:20 BUN 46 mg/dL (6-24) H 11/13/16 21:20 Creatinine 1.75 mg/dL (0.67-1.17) H 11/13/16 21:20 Est GFR ( Amer) 48.0 (>60) 11/13/16 21:20 Est GFR (Non-Af Amer) 37.3 (>60) 11/13/16 21:20 BUN/Creatinine Ratio 26.3 (8-20) H 11/13/16 21:20 Glucose 81 mg/dL (70-100) 11/13/16 21:20 Lactic Acid 1.3 mmol/L (0.5-2.0) 11/13/16 21:20 Calcium 8.8 mg/dL (8.6-10.3) 11/13/16 21:20 Magnesium 3.1 mg/dL (1.9-2.7) H 11/13/16 21:20 Total Bilirubin 0.50 mg/dL (0.2-1.0) 11/13/16 21:20 AST 14 U/L (13-39) 11/13/16 21:20 ALT 10 U/L (7-52) 11/13/16 21:20 Alkaline Phosphatase 50 U/L (34-104) 11/13/16 21:20 Total Creatine Kinase 20 U/L (10-223) 11/13/16 21:20 CK-MB (CK-2) 2.0 ng/mL (0.6-6.3) 11/13/16 21:20 Troponin I 0.07 ng/mL (<0.04) H* 11/13/16 21:20 B-Natriuretic Peptide 254 pg/mL (-100) H 11/13/16 21:20 Total Protein 6.3 g/dL (6.4-8.9) L 11/13/16 21:20 Albumin 3.0 g/dL (3.2-5.2) L 11/13/16 21:20 Globulin 3.3 g/dL (2-4) 11/13/16 21:20 Albumin/Globulin Ratio 0.9 (1-3) L 11/13/16 21:20 TSH 4.18 mcIU/mL (0.34-5.60) 11/13/16 21:20 Urine Color Yellow 11/13/16 21:20 Urine Appearance Clear 11/13/16 21:20 Urine pH 5.0 (5-9) 11/13/16 21:20 Ur Specific [place] 1.010 (1.010-1.030) 11/13/16 21:20 Urine Protein Negative (Negative) 11/13/16 21:20 Urine Ketones Trace (Negative) H 11/13/16 21:20 Urine Blood Negative (Negative) 11/13/16 21:20 Urine Nitrate Negative (Negative) 11/13/16 21:20 Urine Bilirubin Negative (Negative) 11/13/16 21:20 Urine Urobilinogen Negative (Negative) 11/13/16 21:20 Ur Leukocyte Esterase Trace (Negative) H 11/13/16 21:20 Urine WBC (Auto) Trace(0-5/hpf) (Absent) 11/13/16 21:20 Urine RBC (Auto) 2+(6-10/hpf) (Absent) H 11/13/16 21:20 Urine Bacteria Absent (Absent) 11/13/16 21:20 Hyaline Casts Present (Absent) H 11/13/16 21:20 Urine Glucose Negative (Negative) 11/13/16 21:20 - Objective Active Medications: Acetaminophen (Tylenol Tab*) 975 mg PO QAM PRN PRN Reason: FEVER/PAIN Albuterol/Ipratropium (Duoneb Neb.Tiffany*) 1 neb INH Q4H PRN PRN Reason: SOB/WHEEZING Albuterol/Ipratropium (Duoneb Neb.Tiffany*) 1 neb INH RT.BID PENDING SALE TO [facility] Last Admin: 11/14/16 07:37 Dose: 1 neb Arformoterol Tartrate (Brovana(Nf)) 15 mcg INH BID PENDING SALE TO [facility] Last Admin: 11/14/16 09:24 Dose: Not Given Aspirin (Aspirin Ec Low Dose*) 81 mg PO QAM PENDING SALE TO [facility] Last Admin: 11/14/16 08:47 Dose: 81 mg Atorvastatin Calcium (Lipitor*) 20 mg PO QAM PENDING SALE TO [facility] Last Admin: 11/14/16 08:47 Dose: 20 mg Benzonatate (Tessalon Cap*) 200 mg PO TID PENDING SALE TO [facility] Last Admin: 11/14/16 08:47 Dose: 200 mg Bisoprolol Fumarate (Zebeta Tab*) 5 mg PO QPM PENDING SALE TO [facility] Budesonide (Pulmicort Neb*) 1 mg INH RT.BID PENDING SALE TO [facility] Last Admin: 11/14/16 07:37 Dose: 1 mg Bupropion HCl (Wellbutrin Xl *) 150 mg PO QAM PENDING SALE TO [facility] PRN Reason: Protocol Last Admin: 11/14/16 08:48 Dose: 150 mg Docusate Sodium (Colace Cap*) 100 mg PO BEDTIME PENDING SALE TO [facility] Duloxetine HCl (Cymbalta Cap*) 90 mg PO QAM PENDING SALE TO [facility] Last Admin: 11/14/16 08:44 Dose: 90 mg Guaifenesin (Mucinex*) 600 mg PO BID PENDING SALE TO [facility] Last Admin: 11/14/16 08:48 Dose: 600 mg Heparin Sodium (Porcine) (Heparin Vial(*)) 5,000 units SUBCUT Q8HR PENDING SALE TO [facility] Last Admin: 11/14/16 05:36 Dose: 5,000 units Mometasone Furoate/Formoterol Fumar (Dulera 100/5 Mdi*) 2 puff INH BID PENDING SALE TO [facility] Last Admin: 11/14/16 07:38 Dose: 2 puff Multivitamins/Minerals (Theragran/Minerals Tab*) 1 tab PO QAM PENDING SALE TO [facility] Last Admin: 11/14/16 09:22 Dose: 1 tab Oxycodone HCl (Roxycodone Tab*) 5 mg PO Q6H PRN PRN Reason: PAIN Prednisone (Deltasone Tab*) 40 mg PO DAILY PENDING SALE TO [facility] Last Admin: 11/14/16 08:49 Dose: 40 mg Quetiapine Fumarate (Seroquel Xr Tab*) 300 mg PO BEDTIME PENDING SALE TO [facility] Senna (Senokot Tab*) 1 tab PO 2100 PENDING SALE TO [facility] Tamsulosin HCl (Flomax Cap*) 0.4 mg PO QPM PENDING SALE TO [facility] Tiotropium Mccrory (Spiriva Cap.Inh*) 1 cap INH DAILY PENDING SALE TO [facility] Last Admin: 11/14/16 07:38 Dose: 1 cap.inh Torsemide (Demadex*) 40 mg PO QAM PENDING SALE TO [facility] Last Admin: 11/14/16 08:45 Dose: 40 mg Vital Signs: Vital Signs: Temp Pulse Resp BP Pulse Ox 98.1 F 78 18 130/69 100 11/14/16 03:46 11/14/16 07:46 11/14/16 07:46 11/14/16 03:46 11/14/16 07:46 Patient Weight: Weight 131 lb 8 oz Intake and Output: Intake & Output 11/12/16 11/13/16 11/14/16 11/15/16 06:59 06:59 06:59 06:59 Intake Total 0 Output Total 225 Balance -225 Weight 131 lb 8 oz Intake: Oral 0 Output: Urine 225 Other: # Bowel Movements 0 Intake and Output Start: 11/14/16 03: 00 Freq: DAILY@0600,1400,2200 Status: Active Document 11/14/16 06:00 [id number] (Rec: 11/14/16 06:13 [id number]) General Impression: Pleasant, oriented man lying in bed, very softspoken. Head: Symmetrical Eyes: No Scleral Icterus Ears/Nose/Mouth/Throat: Mucous Membranes Moist Neck: NL Appearance and Movements; NL JVP Cardiovascular: NL Sounds; No Murmurs; No JVD Respiratory: Symmetrical Chest Expansion and Respiratory Effort Abdominal: NL Sounds; No Tenderness; No Distention Neurological: Alert and Oriented x 3 - Assessment Assessment: This patient has COPD, CHF and CRF, none to such a degree that he would be hospice eligible, but he is now failing to thrive, has lost almost 30 pounds in 2 months, is unable to bear weight, and has anorexia. He has advanced directives from his last admission specifying no intervention or work up, and comfort measures only. I spoke with his , who alerted me to his constipation issue. I have ordered an enema and would recommend aggressive bowel maintenance, although there may be a possibility, given his rapid decline , that he he has some bowel obstructive process or even malignancy. He also has a history of major depression and suicide but he denies that this is the etiology of his anorexia. His also said that if he needs SNF placement she would choose [facility]. The patient does have [employer] through [place], so may have the coverage that will pay for the [facility] residence, in which case I would try to secure a spot for him at the residence. The patient's , Shelby , says they do not have many resources so he may also qualify for Medicaid to cover his room and board at a SNF. Because of his significant weight loss and anorexia, I would consider him hospice eligible in whichever setting he is placed. Thank you for the consult. - Plan Consult Plan (MU): Hospice - Time On Unit Date of Evaluation: 11/14/16 Hospice Consult Time in: 09:30 Hospice Consult Time Out: 10:15 Hospice Consult Time Total: 45 > 50% of Time Spend In Counseling or Coordinating Care: Yes
--- NOTE | 2016-11-14 11:23 | PN ---
Subjective Date of Service: 11/14/16 Interval History: . Patient was evaluated at the bedside. , daughter were also at the bedside. Pt and family agree with comfort care. They agree that some of his medications can be discontinued. Pt was on Prednisone but pt has been refusing to take it at home. Pt reports overall weakness. Denies CP or SOB. No LE edema. Pt denies pain. No increased sputum increase. Has cough at his baseline. Pt and family do note that he "sounds crackly when breathing". Pt on home oxygen 3L [place]. Pt is interetsed in trying some morphine for when he feels SOB. Objective Active Medications: Acetaminophen (Tylenol Tab*) 975 mg PO QAM PRN PRN Reason: FEVER/PAIN Albuterol/Ipratropium (Duoneb Neb.Tiffany*) 1 neb INH Q4H PRN PRN Reason: SOB/WHEEZING Albuterol/Ipratropium (Duoneb Neb.Tiffany*) 1 neb INH RT.BID [facility] Last Admin: 11/14/16 07:37 Dose: 1 neb Arformoterol Tartrate (Brovana(Nf)) 15 mcg INH BID [facility] Last Admin: 11/14/16 09:24 Dose: Not Given Aspirin (Aspirin Ec Low Dose*) 81 mg PO QAM [facility] Last Admin: 11/14/16 08:47 Dose: 81 mg Benzonatate (Tessalon Cap*) 200 mg PO TID [facility] Last Admin: 11/14/16 08:47 Dose: 200 mg Bisoprolol Fumarate (Zebeta Tab*) 5 mg PO QPM [facility] Budesonide (Pulmicort Neb*) 1 mg INH RT.BID [facility] Last Admin: 11/14/16 07:37 Dose: 1 mg Bupropion HCl (Wellbutrin Xl *) 150 mg PO QAM [facility] PRN Reason: Protocol Last Admin: 11/14/16 08:48 Dose: 150 mg Docusate Sodium (Colace Cap*) 100 mg PO BEDTIME [facility] Duloxetine HCl (Cymbalta Cap*) 90 mg PO QAM [facility] Last Admin: 11/14/16 08:44 Dose: 90 mg Guaifenesin (Mucinex*) 600 mg PO BID [facility] Last Admin: 11/14/16 08:48 Dose: 600 mg Heparin Sodium (Porcine) (Heparin Vial(*)) 5,000 units SUBCUT Q8HR [facility] Last Admin: 11/14/16 05:36 Dose: 5,000 units Mometasone Furoate/Formoterol Fumar (Dulera 100/5 Mdi*) 2 puff INH BID [facility] Last Admin: 11/14/16 07:38 Dose: 2 puff Multivitamins/Minerals (Theragran/Minerals Tab*) 1 tab PO QAM [facility] Last Admin: 11/14/16 09:22 Dose: 1 tab Oxycodone HCl (Roxycodone Tab*) 5 mg PO Q6H PRN PRN Reason: PAIN Prednisone (Deltasone Tab*) 40 mg PO DAILY [facility] Last Admin: 11/14/16 08:49 Dose: 40 mg Quetiapine Fumarate (Seroquel Xr Tab*) 300 mg PO BEDTIME [facility] Senna (Senokot Tab*) 1 tab PO 2100 [facility] Tamsulosin HCl (Flomax Cap*) 0.4 mg PO QPM [facility] Tiotropium [place] (Spiriva Cap.Inh*) 1 cap INH DAILY [facility] Last Admin: 11/14/16 07:38 Dose: 1 cap.inh Torsemide (Demadex*) 40 mg PO QAM [facility] Last Admin: 11/14/16 08:45 Dose: 40 mg Vital Signs 11/14/16 11/14/16 11/14/16 02:59 03:40 03:46 Temperature 98.1 F 98.1 F Pulse Rate 78 79 79 Respiratory 21 22 22 Rate Blood Pressure 130/69 130/69 (mmHg) O2 Sat by Pulse 89 98 98 Oximetry 11/14/16 11/14/16 11/14/16 04:51 07:27 07:46 Temperature 98.3 F Pulse Rate 75 78 Respiratory 22 18 Rate Blood Pressure 128/68 (mmHg) O2 Sat by Pulse 96 97 Oximetry Oxygen Devices in Use Now: Nasal Cannula - 3L NC Appearance: 86 yo elderly male sitting up in a chair in NAD. A+Ox3 Eyes: No Scleral Icterus, PERRLA Ears/Nose/Mouth/Throat: NL Teeth, Lips, Gums, Mucous Membranes Moist Neck: NL Appearance and Movements; NL JVP Respiratory: Symmetrical Chest Expansion and Respiratory Effort, - - diminished b/l, crackles throughout Cardiovascular: NL Sounds; No Murmurs; No JVD, RRR, No Edema Abdominal: NL Sounds; No Tenderness; No Distention Lymphatic: No Cervical Adenopathy Extremities: No Edema, No Clubbing, Cyanosis Skin: No Rash or Ulcers, No Nodules or Sclerosis Neurological: Alert and Oriented x 3, NL Sensation, - - strength 3/5 throughout Lines/Tubes/Other Access: Clean, Dry and Intact Peripheral IV Nutrition: Taking PO's Result Diagrams: 11/14/16 09:28 11/14/16 09:28 Microbiology and Other Data: Microbiology 11/14/16 03:00 Nasal Screen MRSA (PCR)(SILAS) - Final Nasal Mrsa Positive Assess/Plan/Problems-Billing Assessment: Mr. Ryder is a 86 yo male with a PMH of CAD s/p 4-vessel CABG, COPD on home oxygen of 3L NC, Hemorrhagic CVA, CHF, CKD and suicide attempt/hx of depression who presents with weakness. Patient with 3rd hospitalization in 2 months and recently discharged from [facility]hab approx 1 week ago. - Patient Problems (1) Weakness Comment: - 30 lbs weight loss in 2 months, unable to bear weight and anorexia. Prealbumin 9. Pt wishes for comfort care measures only. - Appreciate Hospice consult; pt is Hospice eligible. can no longer care for patient at home, plan for Hospice residence vs SNF. (2) CAD (coronary artery disease) Comment: Troponin stable at 0.06-likely demand ischemia. Continue ASA, beta cezar. (3) COPD (chronic obstructive pulmonary disease) Comment: Does not appear to be in exacerbation. DC prednisone. Continue home inhalers. (4) Congestive heart failure Status: Chronic Comment: chronic systolic CHF. Continue oral torsemide. Creatinine around baseline. (5) Depression Comment: Continue duloxetine, bupropion. (6) HTN (hypertension) Comment: Controlled Pt for now would like to Continue bisoprolol. (7) DVT prophylaxis Comment: HSQ Status and Disposition: Inpatient. Plan for Hospice in SNF vs Residence.
[2016-11-14] MEDS: Tamsulosin CAP* 0.4 MG PO SCH (17:44)
[2016-11-14] MEDS: BISOPROLOL 5 MG PO SCH (17:44)
[2016-11-14] MEDS: Formoterol 20 MCG/2ML NEB (NF) 10 MCG/ML NEB.SOLN INH SCH (21:32)
[2016-11-14] MEDS: Senna TAB PO SCH (21:45)
[2016-11-14] MEDS: Docusate CAP* 100 MG PO SCH (21:45)
[2016-11-14] MEDS: Polyethylene Glycol 3350* 17 GM PACKET PO SCH (21:45)
[2016-11-14] MEDS: QUEtiapine XR TAB* 300 MG PO SCH (21:45)
[2016-11-15] MEDS: Morphine INJ* 2 MG/ML 1 ML CARPUJECT IV PRN ×5 (02:41→22:20)
[2016-11-15] MEDS: Heparin VIAL(*) 5000 UNITS/ML VIAL (FIVE THOUSAND) SUBCUT SCH ×3 (05:31→22:24)
[2016-11-15 07:30] VITALS: BP 134/54
[2016-11-15] MEDS: Tiotropium CAP.INH* CAP.INH/18 MCG (USE ORDER SET !) INH SCH ×2 (08:17→08:26)
[2016-11-15] MEDS: Budesonide NEB* 0.5 MG/2 ML NEB.SOLN INH SCH (08:17)
[2016-11-15] MEDS: Mometasone/Formoter 100/5 MDI INH SCH (08:26)
[2016-11-15] MEDS: guaiFENesin ER TAB 600 MG PO SCH ×2 (09:34→20:08)
[2016-11-15] MEDS: DULoxetine DR CAP* 30 MG CAP.DR PO SCH (09:34)
[2016-11-15] MEDS: BuPROPion XL* 150 MG TAB.XL PO SCH (09:34)
[2016-11-15] MEDS: Polyethylene Glycol 3350* 17 GM PACKET PO SCH ×2 (09:34→20:08)
[2016-11-15] MEDS: Aspirin EC Low Dose* 81 MG TAB.EC PO SCH (09:34)
[2016-11-15] MEDS: Multivitamins/Minerals TAB PO SCH (09:34)
[2016-11-15] MEDS: Torsemide TAB* 20 MG PO SCH (09:34)
[2016-11-15] MEDS: Formoterol 20 MCG/2ML NEB (NF) 10 MCG/ML NEB.SOLN INH SCH (10:07)
--- NOTE | 2016-11-15 16:46 | RAD ---
Indication: Constipation. Weakness. Comparison: No relevant prior exams available on the [facility]. Technique: Supine and LEFT lateral decubitus abdomen views. Report: Negative for free intraperitoneal air. Diffuse mild gas distention of the colon. Small volume of stool at the hepatic flexure and moderate rectal distention with stool. Negative for dilated small bowel loops. Arterial calcifications and pelvic phleboliths. Unremarkable soft tissue contours. Median sternotomy wires, mediastinal vascular clips, bilateral LEFT larger than RIGHT small dependent pleural effusions with associated basilar atelectasis similar to the November 13, 2016 chest radiograph. IMPRESSION: No evidence for bowel obstruction. Moderate rectal distention with stool.
[2016-11-15] MEDS ORDERED: Mineral Oil ENEMA* 1 BOTTLE PR ONE (16:58)
--- NOTE | 2016-11-15 17:00 | PN ---
Subjective Date of Service: 11/15/16 Interval History: pt resting, easily awakes on exam. offer no complaints. denies pain, sob or CP. Objective Active Medications: Acetaminophen (Tylenol Tab*) 975 mg PO QAM PRN PRN Reason: FEVER/PAIN Aspirin (Aspirin Ec Low Dose*) 81 mg PO QAM [facility] Last Admin: 11/15/16 09:34 Dose: Not Given Bisoprolol Fumarate (Zebeta Tab*) 5 mg PO QPM [facility] Last Admin: 11/14/16 17:44 Dose: 5 mg Bupropion HCl (Wellbutrin Xl *) 150 mg PO QAM [facility] PRN Reason: Protocol Last Admin: 11/15/16 09:34 Dose: Not Given Docusate Sodium (Colace Cap*) 100 mg PO BEDTIME [facility] Last Admin: 11/14/16 21:45 Dose: 100 mg Duloxetine HCl (Cymbalta Cap*) 90 mg PO QAM [facility] Last Admin: 11/15/16 09:34 Dose: Not Given Guaifenesin (Mucinex*) 600 mg PO BID [facility] Last Admin: 11/15/16 09:34 Dose: Not Given Heparin Sodium (Porcine) (Heparin Vial(*)) 5,000 units SUBCUT Q8HR [facility] Last Admin: 11/15/16 13:18 Dose: Not Given Magnesium Hydroxide (Milk Of Magnpj Liq*) 30 ml PO BID [facility] Morphine Sulfate (Morphine Inj (Syringe)*) 2 mg IV Q2H PRN PRN Reason: PAIN Last Admin: 11/15/16 15:33 Dose: 2 mg Multivitamins/Minerals (Theragran/Minerals Tab*) [facility] [place] [facility] Admin: 11/15/16 09:34 Dose: Not Given Oxycodone HCl (Roxycodone Tab*) 5 mg PO Q6H PRN PRN Reason: PAIN Polyethylene Glycol/Electrolytes (Miralax*) 17 gm PO 0800,2100 [facility] Last Admin: 11/15/16 09:34 Dose: Not Given Quetiapine Fumarate (Seroquel Xr Tab*) 300 mg PO BEDTIME [facility] Last Admin: 11/14/16 21:45 Dose: 300 mg Senna (Senokot Tab*) 1 tab PO 2100 [facility] Last Admin: 11/14/16 21:45 Dose: 1 tab Tamsulosin HCl (Flomax Cap*) 0.4 mg PO QPM [facility] Last Admin: 11/14/16 17:44 Dose: 0.4 mg Torsemide (Demadex*) 40 mg PO QAM [facility] Last Admin: 11/15/16 09:34 Dose: Not Given Vital Signs 11/14/16 11/14/16 11/14/16 17:04 20:00 20:19 Temperature 97.2 F Pulse Rate 74 76 Respiratory 18 16 Rate Blood Pressure 136/75 (mmHg) O2 Sat by Pulse 98 95 Oximetry 11/14/16 11/14/16 11/15/16 20:26 23:15 02:41 Temperature 98.0 F Pulse Rate 69 Respiratory 15 20 Rate Blood Pressure 118/73 (mmHg) O2 Sat by Pulse 94 98 Oximetry 11/15/16 11/15/16 11/15/16 03:32 03:41 07:16 Temperature 97.8 F Pulse Rate 77 76 Respiratory 16 18 20 Rate Blood Pressure 100/63 134/54 (mmHg) O2 Sat by Pulse 87 100 Oximetry 11/15/16 11/15/16 11/15/16 08:00 08:27 08:28 Temperature Pulse Rate 69 Respiratory 18 17 Rate Blood Pressure (mmHg) O2 Sat by Pulse 97 95 Oximetry 11/15/16 11/15/16 11/15/16 10:22 11:22 15:33 Temperature Pulse Rate Respiratory 22 18 22 Rate Blood Pressure (mmHg) O2 Sat by Pulse Oximetry Oxygen Devices in Use Now: Nasal Cannula - 3L NC Appearance: elderly chronically ill appearing male laying in bed in NAD. A+O x3 Eyes: No Scleral Icterus, PERRLA Ears/Nose/Mouth/Throat: NL Teeth, Lips, Gums, Mucous Membranes Moist Neck: NL Appearance and Movements; NL JVP Respiratory: Symmetrical Chest Expansion and Respiratory Effort, - - mild crackles throughout Cardiovascular: NL Sounds; No Murmurs; No JVD, RRR, No Edema Abdominal: NL Sounds; No Tenderness; No Distention Lymphatic: No Cervical Adenopathy Extremities: No Edema, No Clubbing, Cyanosis Skin: No Rash or Ulcers, No Nodules or Sclerosis Neurological: Alert and Oriented x 3, NL Sensation, NL Muscle Strength and Tone Lines/Tubes/Other Access: Clean, Dry and Intact Peripheral IV Nutrition: Taking PO's Result Diagrams: 11/14/16 09:28 11/14/16 09:28 Microbiology and Other Data: Microbiology 11/14/16 03:00 Nasal Screen MRSA (PCR)(SILAS) - Final Nasal Mrsa Positive Assess/Plan/Problems-Billing Assessment: Mr. Ryder is a 86 yo male with a PMH of CAD s/p 4-vessel CABG, COPD on home oxygen of 3L NC, Hemorrhagic CVA, CHF, CKD and suicide attempt/hx of depression who presents with weakness. Patient with 3rd hospitalization in 2 months and recently discharged from [facility]hab approx 1 week ago. - Patient Problems (1) Weakness Comment: - 30 lbs weight loss in 2 months, unable to bear weight and anorexia. Prealbumin 9. Pt wishes for comfort care measures only. - Appreciate Hospice consult; pt is Hospice eligible. can no longer care for patient at home, plan for SNF with Hospice (2) Constipation Comment: - xray obtained, no obstruction. Moderate amount of stool in rectum . Increase bowel regimen. Pt did have a large BM reported this evening (3) Congestive heart failure Status: Chronic Comment: chronic systolic CHF. Continue oral torsemide. Creatinine around baseline. (4) Depression Comment: Continue duloxetine, bupropion. (5) HTN (hypertension) Comment: Controlled Pt for now would like to Continue bisoprolol. (6) DVT prophylaxis Comment: HSQ Status and Disposition: Inpatient. [facility]
[2016-11-15] MEDS: Tamsulosin CAP* 0.4 MG PO SCH (18:24)
[2016-11-15] MEDS: BISOPROLOL 5 MG PO SCH (18:24)
[2016-11-15] MEDS: Docusate CAP* 100 MG PO SCH (20:07)
[2016-11-15] MEDS: Senna TAB PO SCH (20:08)
[2016-11-15] MEDS: QUEtiapine XR TAB* 300 MG PO SCH (20:08)
[2016-11-15] MEDS ORDERED: Magnesium Hydroxide LIQ* 30 ML UDC PO SCH (21:00)
[2016-11-15] MEDS: LORazepam INJ* 2 MG/ML 1 ML VIAL IV PUSH PRN (22:52)
[2016-11-16] MEDS: LORazepam INJ* 2 MG/ML 1 ML VIAL IV PUSH PRN ×2 (03:43→12:48)
[2016-11-16] MEDS: Heparin VIAL(*) 5000 UNITS/ML VIAL (FIVE THOUSAND) SUBCUT SCH (05:33)
[2016-11-16] MEDS: Morphine INJ* 2 MG/ML 1 ML CARPUJECT IV PRN ×3 (06:43→12:48)
[2016-11-16] MEDS: Polyethylene Glycol 3350* 17 GM PACKET PO SCH (08:25)
[2016-11-16] MEDS: Aspirin EC Low Dose* 81 MG TAB.EC PO SCH (08:26)
[2016-11-16] MEDS: guaiFENesin ER TAB 600 MG PO SCH (08:26)
[2016-11-16] MEDS: Torsemide TAB* 20 MG PO SCH (08:26)
[2016-11-16] MEDS: Multivitamins/Minerals TAB PO SCH (08:26)
[2016-11-16] MEDS: BuPROPion XL* 150 MG TAB.XL PO SCH (08:26)
[2016-11-16] MEDS: DULoxetine DR CAP* 30 MG CAP.DR PO SCH (08:26)
--- NOTE | 2016-11-16 12:53 | DCNOTE ---
Subjective Date of Service: 11/16/16 Interval History: Pt reports he "feels sob" this morning on my exam. He states "whats new". Denies CP. Denies other pain. He agrees with plan for comfort care. I was called back to the bedroom after the patient pulled himself OOB and was found on the floor. It was an unwitnessed fall but he it was heard by staff outside the room and he was evaluated within seconds. He denies any pain or hitting his head. Family was updated Objective Active Medications: Acetaminophen (Tylenol Tab*) 975 mg PO QAM PRN PRN Reason: FEVER/PAIN Aspirin (Aspirin Ec Low Dose*) 81 mg PO QAM [facility] Last Admin: 11/16/16 08:26 Dose: Not Given Bisoprolol Fumarate (Zebeta Tab*) 5 mg PO QPM [facility] Last Admin: 11/15/16 18:24 Dose: Not Given Bupropion HCl (Wellbutrin Xl *) 150 mg PO QAM [facility] PRN Reason: Protocol Last Admin: 11/16/16 08:26 Dose: Not Given Docusate Sodium (Colace Cap*) 100 mg PO BEDTIME [facility] Last Admin: 11/15/16 20:07 Dose: Not Given Duloxetine HCl (Cymbalta Cap*) 90 mg PO QAM [facility] Last Admin: 11/16/16 08:26 Dose: Not Given Guaifenesin (Mucinex*) 600 mg PO BID [facility] Last Admin: 11/16/16 08:26 Dose: Not Given Heparin Sodium (Porcine) (Heparin Vial(*)) 5,000 units SUBCUT Q8HR [facility] Last Admin: 11/16/16 05:33 Dose: Not Given Lorazepam (Ativan Inj*) 0.5 mg IV PUSH Q4H PRN PRN Reason: ANXIETY Last Admin: 11/16/16 12:48 Dose: 0.5 mg Morphine Sulfate (Morphine Inj (Syringe)*) 2 mg IV Q2H PRN PRN Reason: PAIN Last Admin: 11/16/16 12:48 Dose: 2 mg Multivitamins/Minerals (Theragran/Minerals Tab*) 1 tab PO QAM [facility] Last Admin: 11/16/16 08:26 Dose: Not Given Oxycodone HCl (Roxycodone Tab*) 5 mg PO Q6H PRN PRN Reason: PAIN Polyethylene Glycol/Electrolytes (Miralax*) 17 gm PO 0800,2100 [facility] Last Admin: 11/16/16 08:25 Dose: Not Given Quetiapine Fumarate (Seroquel Xr Tab*) 300 mg PO BEDTIME [facility] Last Admin: 11/15/16 20:08 Dose: Not Given Senna (Senokot Tab*) 1 tab PO 2100 [facility] Last Admin: 11/15/16 20:08 Dose: Not Given Tamsulosin HCl (Flomax Cap*) 0.4 mg PO QPM [facility] Last Admin: 11/15/16 18:24 Dose: Not Given Torsemide (Demadex*) 40 mg PO QAM [facility] Last Admin: 11/16/16 08:26 Dose: Not Given Vital Signs 11/15/16 11/15/16 11/15/16 15:33 16:33 20:00 Respiratory 22 18 20 Rate O2 Sat by Pulse Oximetry 11/15/16 11/15/16 11/15/16 20:03 21:03 22:20 Respiratory 20 20 20 Rate O2 Sat by Pulse Oximetry 11/15/16 11/15/16 11/15/16 22:52 23:20 23:52 Respiratory 20 20 20 Rate O2 Sat by Pulse Oximetry 11/16/16 11/16/16 11/16/16 03:43 04:22 04:43 Respiratory 22 20 Rate O2 Sat by Pulse 95 Oximetry 11/16/16 11/16/16 11/16/16 06:43 07:43 10:09 Respiratory 20 20 22 Rate O2 Sat by Pulse Oximetry 11/16/16 11/16/16 11:09 12:48 Respiratory 18 22 Rate O2 Sat by Pulse Oximetry Oxygen Devices in Use Now: Nasal Cannula - 3L NC Appearance: 86 yo elderly male laying in bed A+O to self and place but not to time Eyes: No Scleral Icterus, PERRLA Ears/Nose/Mouth/Throat: Mucous Membranes Moist Neck: NL Appearance and Movements; NL JVP Respiratory: Symmetrical Chest Expansion and Respiratory Effort, - - diminished , crackles throughout Cardiovascular: NL Sounds; No Murmurs; No JVD, RRR, No Edema Abdominal: NL Sounds; No Tenderness; No Distention Lymphatic: No Cervical Adenopathy Extremities: No Edema, No Clubbing, Cyanosis, - - no noted injuries noted on skin. strength in 4/5 throughout, no tenderness over ribs. Skin: No Rash or Ulcers, No Nodules or Sclerosis Neurological: NL Sensation, NL Muscle Strength and Tone, - - No noted neuro deficet found after fall. full ROM in all extremities. Lines/Tubes/Other Access: Clean, Dry and Intact Peripheral IV Nutrition: - - taking little PO Result Diagrams: 11/14/16 09:28 11/14/16 09:28 Microbiology and Other Data: Microbiology 11/14/16 03:00 Nasal Screen MRSA (PCR)(SILAS) - Final Nasal Mrsa Positive Assess/Plan/Problems-Billing Assessment: Mr. Ryder is a 86 yo male with a PMH of CAD s/p 4-vessel CABG, COPD on home oxygen of 3L NC, Hemorrhagic CVA, CHF, CKD and suicide attempt/hx of depression who presents with weakness. Patient with 3rd hospitalization in 2 months and [facility]. - Patient Problems (1) Weakness Comment: Failure to Thrive - 30 lbs weight loss in 2 months, unable to bear weight and anorexia. Prealbumin 9. Pt wishes for comfort care measures only. - Appreciate Hospice consult; pt is Hospice eligible. can no longer care for patient at home. - comfort care measures (2) Constipation Comment: - xray obtained, no obstruction. constipation resolved (3) Congestive heart failure Status: Chronic Comment: chronic systolic CHF. Continue oral torsemide. Creatinine around baseline. (4) Depression Comment: Continue duloxetine, bupropion. (5) HTN (hypertension) Comment: Controlled Pt for now would like to Continue bisoprolol. (6) DVT prophylaxis Comment: HSQ (7) Fall Comment: unwitnessed fall. appears to have no injuries. no imaging recommended at this time. family updated and agrees with plan Status and Disposition: Inpatient. Plan for Hospice at Hospice Residence
--- NOTE | 2016-11-17 01:30 | TRS ---
TRANSFER SUMMARY: DATE OF ADMISSION: 11/14/16 DATE OF TRANSFER: 11/16/16 PROVIDER: Cynthia Cardoso NP ATTENDING PHYSICIAN: Abdelrahman Mesa MD *(report dictated by Cynthia Cardoso NP) PRIMARY CARE PROVIDER: Maxx Velázquez MD TRANSFERRED TO: [facility]. PRIMARY DIAGNOSES: 1. Failure to thrive. 2. Comfort care measures. SECONDARY DIAGNOSES: 1. Coronary artery disease status post four-vessel CABG. 2. Chronic obstructive pulmonary disease, on 3 L nasal cannula baseline. 3. History of hemorrhagic cerebrovascular accident. 4. Hypertension. 5. Hyperlipidemia. 6. Obstructive sleep apnea. 7. Depression. 8. Chronic low back pain with sciatica. 9. History of suicide attempt. 10. Benign prostatic hyperplasia. PAST MEDICAL HISTORY: Chronic kidney disease. DISCHARGE MEDICATIONS: 1. Oxycodone 5 mg p.o. q.6 hours p.r.n. 2. DuoNeb 1 neb INH q.12 hours p.r.n. 3. Senna/docusate sodium 50/8.6 mg 1 tab p.o. at bedtime. 4. Cymbalta 90 mg p.o. q.a.m. 5. Wellbutrin XL 150 mg p.o. q.a.m. 6. Acetaminophen 1000 mg p.o. q.a.m. p.r.n. 7. Mucinex 600 mg p.o. b.i.d. 8. Torsemide 40 mg p.o. q.a.m. 9. Flomax 0.4 mg p.o. q.p.m. 10. Seroquel XL 300 mg p.o. at bedtime. 11. Morphine oral concentrate 5 mg p.o. q.4 hours p.r.n. 12. Ativan 1 mg p.o. q.6 hours p.r.n. HISTORY OF PRESENT ILLNESS AND HOSPITAL COURSE: Please see history and physical by Dr. Heriberto Buitrago for full admission and details, but in summary, this is an 86-year- old male who had recently been discharged from [facility] to home, where he was being taken care of by his . He presented on 11/14/16 with complaints of increasing weakness with decreased appetite and decreased oral intake. Per , she is unable to care for him any longer at home. The patient had had no nausea, vomiting, or pain. No noted fevers or chills. The patient was admitted to the hospitalist service for weakness, which is thought to be secondary to failure to thrive. This is the patient's third hospitalization in 2 months. He is noted to have lost 30 pounds in the last 2 months and is unable to unable to bear weight and has anorexia. His prealbumin is 9. The patient and his family had a hospice evaluation and the patient was found to meet criteria for hospice. The family and the patient wish for comfort care measures only. In regards to the patient' s home medications, it was decided to continue the patient's antidepressants and psych meds due to his history of severe depression and suicide attempt. As well, the wanted to keep some of his medications on but are open to changing this when he is at the hospice residence. The patient was noted to have significant constipation throughout the hospitalization; however, he was started on a bowel regimen and did have several large bowel movements. An abdominal x-ray was obtained, which showed no obstruction. It did show a moderate amount of stool in the rectum; however, he has had multiple bowel movements since that time. Today, the patient pulled himself out of bed and fell on the floor with an unwitnessed fall. I examined the patient at the bedside. He denied any pain or injury. He moves all extremities equally. No suspicion for fracture. No noted head trauma. Neuro Exam: Intact. The patient did not undergo imaging. This was discussed with the family and agreed with plan of care. DISCHARGE PLAN : Plan to discharge the patient to hospice residence for comfort care measures and end-of-life care. TIME SPENT: Approximately 60 minutes was spent on this discharge. CYNTHIA CARDOSO NP CC: Dr. Velázquez * [id number]/[facility] #: [id number]
== END 2016-11-16 13:30 | disposition home or self-care (01) | DRG 948 ==
LOC: ED 20:09 → MED 11-14 02:55 → OBSVTOIN 11-14 13:00
PROVIDERS: ADMIT Internal Medicine; ATTEND Hospitalist
DX: R53.1 Weakness (principal); I13.0 Hypertensive heart and chronic kidney disease with heart failure and stage 1 through stage 4 chronic kidney disease, or unspecified chronic kidney disease; I50.22 Chronic systolic (congestive) heart failure; Z99.81 Dependence on supplemental oxygen; I25.810 Atherosclerosis of coronary artery bypass graft(s) without angina pectoris; E78.5 Hyperlipidemia, unspecified; J44.9 Chronic obstructive pulmonary disease, unspecified; G47.33 Obstructive sleep apnea (adult) (pediatric); F32.9 Major depressive disorder, single episode, unspecified; M54.40 Lumbago with sciatica, unspecified side; N40.0 Benign prostatic hyperplasia without lower urinary tract symptoms; F10.21 Alcohol dependence, in remission; N18.3 Chronic kidney disease, stage 3 (moderate); K59.00 Constipation, unspecified; Z66 Do not resuscitate; R62.7 Adult failure to thrive; Z95.1 Presence of aortocoronary bypass graft; Z86.73 Personal history of transient ischemic attack (TIA), and cerebral infarction without residual deficits; Z87.891 Personal history of nicotine dependence; Z88.2 Allergy status to sulfonamides; Z79.899 Other long term (current) drug therapy; Z79.52 Long term (current) use of systemic steroids; Z79.891 Long term (current) use of opiate analgesic; Z79.1 Long term (current) use of non-steroidal anti-inflammatories (NSAID); Z79.82 Long term (current) use of aspirin
CPT/HCPCS: 36415; 71010; 74020; 80048; 80053; 81003; 81015; 82550; 82553; 83605; 83735; 83880; 84134; 84443; 84484; 85025; 87086; 87641; 93005; 94640; 94760; A9270-GY; J1644; J2060; J2270; J7512